=== PATIENT | male | born 1950 | race Caucasian/White ===

== ENCOUNTER 2016-08-06 12:18 | Emergency (ER) | payer MEDICARE ==
[2016-08-06 12:57] VITALS: PULSE 115; RESP 16; TEMP 97.1
[2016-08-06] MEDS ORDERED: SODIUM CHLORIDE 0.9% 1,000 ML IV STA ×3 (13:30→13:40)
--- NOTE | 2016-08-06 13:44 | ED ---
General Adult HPI - General Chief complaint: Back Pain/Injury Stated complaint: Back Pain, numbness Time Seen by Provider: 08/06/16 13:16 Source: patient, family, RN notes reviewed Mode of arrival: ambulatory Limitations: no limitations - History of Present Illness Initial comments: Patient is 65-year-old male with significant past medical history for chronic low back pain, who presents emergency room today with a chief complaint of increased pain was lower back weakness. Patient states that he did have 2 episodes where he fell. States he woke up this morning approximately 5:30 AM. He states he was at a difficult time getting out of bed. States was able to get up legs gave out and fell down to the ground. States he had an episode of bladder incontinence at that time. Patient states he was done on and off for approximately half an hour. He states he was able to get up make his way over to the dining room. States he had another episode where he fell. He states that approximate hour to get off the floor and into a chair. He states he slowly began to feel better. States still feeling somewhat weak and having some pain to the right side of lower back. He denies any recent trauma or injury. He does admit that in mid July he did have a couple slips and falls on the ice. Patient denies any saddle anesthesia. States voided normally since this episode of incontinence earlier. States never had incontinence before. Patient does admit to some pain right lower back. Admits to some numbness tingling going down into the right leg to his knee. Patient denies any recent fever, chills, shortness of breath, chest pain, abdominal pain, nausea or vomiting, dysuria or hematuria, constipation or diarrhea, headaches or visual changes, or any other complaints. - Related Data Home Medications Medication Instructions Recorded Confirmed Baclofen 10 mg PO TID 08/06/16 08/06/16 Cetirizine HCl [Zyrtec] 10 mg PO DAILY 08/06/16 08/06/16 Hydrocodone/Acetaminophen [[place] 1 tab PO Q6H PRN 08/06/16 08/06/16 10-325] Insulin Glargine [Lantus] 100 unit SQ DAILY 08/06/16 08/06/16 Zolpidem [Ambien] 10 mg PO HS PRN 02/03/17 02/03/17 clonazePAM [KlonoPIN] 1 mg PO TID 08/06/16 08/06/16 Previous Rx's Medication Instructions Recorded predniSONE 20 mg PO DIRECTED 5 Days 08/06/16 Allergies Allergy/AdvReac Type Severity Reaction Status Date / Time Saeiqsf-Xat-Hyu Reductase Allergy Swelling Verified 08/06/16 12:57 Inhibitor Review of Systems ROS Statement: Those systems with pertinent positive or pertinent negative responses have been documented in the HPI. ROS Other: All systems not noted in ROS Statement are negative. Past Medical History Past Medical History: COPD, Diabetes Mellitus Additional Past Medical History / Comment(s): back pain History of Any Multi-Drug Resistant Organisms: None Reported Past Surgical History: Tonsillectomy Past Psychological History: No Psychological Hx Reported Smoking Status: Current every day smoker Past Alcohol Use History: None Reported Past Drug Use History: None Reported General Exam - General Exam Comments Initial Comments: General: The patient is awake and alert, in no distress, and does not appear acutely ill. Eye: Pupils are equal, round and reactive to light, extra-ocular movements are intact. No nystagmus. There is normal conjunctiva bilaterally. No signs of icterus. Ears, nose, mouth and throat: There are moist mucous membranes and no oral lesions. Neck: The neck is supple, there is no tenderness or JVD. Cardiovascular: There is a regular rate and rhythm. No murmur, rub or gallop is appreciated. Respiratory: Lungs are clear to auscultation, respirations are non-labored, breath sounds are equal. No wheezes, stridor, rales, or rhonchi. Gastrointestinal: Soft, non-distended, non-tender abdomen without masses or organomegaly noted. There is no rebound or guarding present. No CVA tenderness. Bowel sounds are unremarkable. Musculoskeletal: Normal ROM. No tenderness in thoracic or lumbar spine. No tenderness over spinous processes. Patient does have some paravertebral tenderness on the right side of lower lumbar of L5. Strength 5/5. Sensation intact. Pulses equal bilaterally 2+. Neurological: A&O x 3. CN II-XII intact, There are no obvious motor or sensory deficits. Coordination appears grossly intact. Speech is normal. Skin: Skin is warm and dry and no rashes or lesions are noted. Psychiatric: Cooperative, appropriate mood & affect, normal judgment. : Good rectal tone Limitations: no limitations Course Vital Signs 08/06/16 12:51 Temperature 97.1 F L Pulse Rate 115 H Respiratory 16 Rate Blood Pressure 181/86 O2 Sat by Pulse 97 Oximetry Medical Decision Making - Medical Decision Making Case discussed in detail with attending physician Dr. Boo. Patient reexamined at this time shows no signs of distress. He is been up and laboratory here in the emergency room. He doesn't that he is feeling better in the morning was this morning. Patient labs been reviewed does show elevated blood sugar. Patient given insulin here in emergency room. Patient's CAT scan has been reviewed and does show 1. Degenerative disc disease with mild central stenosis at L4-L5. 2. Severe degenerative disc disease with vacuum disc, anterolisthesis and bilateral spondylosis at L5-S1. Bilateral lateral recess stenosis. Case was discussed with patient's orthopedic Dr Mathis who has reviewed his CT. Recommends starting him on a steroid taper and following up in the office over the next 2-3 days. Results were discussed with the patient. He states feels comfortable being discharged home starting steroids and following up. Patient advised return here to the emergency room if any symptoms increase or worsen or for any other concerns. - Lab Data Result diagrams: 08/06/16 13:53 08/06/16 13:53 Lab Results 08/06/16 08/06/16 08/06/16 Range/Units 13:53 13:53 13:53 WBC 5.6 (3.8-10.6) k/uL RBC 5.77 (4.30-5.90) m/uL Hgb 18.2 H (13.0-17.5) gm/dL Hct 54.6 H (39.0-53.0) % MCV 94.7 (80.0-100.0) fL MCH 31.6 (25.0-35.0) pg MCHC 33.4 (31.0-37.0) g/dL RDW 12.7 (11.5-15.5) % Plt Count 237 (150-450) k/uL Neutrophils % 73 % Lymphocytes % 17 % Monocytes % 8 % Eosinophils % 0 % Basophils % 0 % Neutrophils # 4.1 (1.3-7.7) k/uL Lymphocytes # 0.9 L (1.0-4.8) k/uL Monocytes # 0.5 (0-1.0) k/uL Eosinophils # 0.0 (0-0.7) k/uL Basophils # 0.0 (0-0.2) k/uL PT 10.7 (9.0-12.0) sec INR 1.1 (<1.1) APTT 24.3 (22.0-30.0) sec Sodium (137-145) mmol/L Potassium (3.5-5.1) mmol/L Chloride (98-107) mmol/L Carbon Dioxide (22-30) mmol/L Anion Gap mmol/L BUN (9-20) mg/dL Creatinine (0.66-1.25) mg/dL Est GFR (MDRD) Af Amer (>60 ml/min/1.73 sqM) Est GFR (MDRD) Non-Af (>60 ml/min/1.73 sqM) Glucose (74-99) mg/dL Calcium (8.4-10.2) mg/dL Total Bilirubin (0.2-1.3) mg/dL AST (17-59) U/L ALT (21-72) U/L Alkaline Phosphatase (38-126) U/L Total Creatine Kinase 59 (55-170) U/L CK-MB (CK-2) 1.0 (0.0-2.4) ng/mL CK-MB (CK-2) Rel Index 1.7 Troponin I <0.012 (0.000-0.034) ng/mL Total Protein (6.3-8.2) g/dL Albumin (3.5-5.0) g/dL Urine Color Urine Appearance (Clear) Urine pH (5.0-8.0) Ur Specific [place] (1.001-1.035) Urine Protein (Negative) Urine Glucose (UA) (Negative) Urine Ketones (Negative) Urine Blood (Negative) Urine Nitrate (Negative) Urine Bilirubin (Negative) Urine Urobilinogen (<2.0) mg/dL Ur Leukocyte Esterase (Negative) 08/06/16 08/06/16 Range/Units 13:53 15:30 WBC (3.8-10.6) k/uL RBC (4.30-5.90) m/uL Hgb (13.0-17.5) gm/dL Hct (39.0-53.0) % MCV (80.0-100.0) fL MCH (25.0-35.0) pg MCHC (31.0-37.0) g/dL RDW (11.5-15.5) % Plt Count (150-450) k/uL Neutrophils % % Lymphocytes % % Monocytes % % Eosinophils % % Basophils % % Neutrophils # (1.3-7.7) k/uL Lymphocytes # (1.0-4.8) k/uL Monocytes # (0-1.0) k/uL Eosinophils # (0-0.7) k/uL Basophils # (0-0.2) k/uL PT (9.0-12.0) sec INR (<1.1) APTT (22.0-30.0) sec Sodium 137 (137-145) mmol/L Potassium 4.8 (3.5-5.1) mmol/L Chloride 99 (98-107) mmol/L Carbon Dioxide 22 (22-30) mmol/L Anion Gap 16 mmol/L BUN 18 (9-20) mg/dL Creatinine 0.70 (0.66-1.25) mg/dL Est GFR (MDRD) Af Amer >60 (>60 ml/min/1.73 sqM) Est GFR (MDRD) Non-Af >60 (>60 ml/min/1.73 sqM) Glucose 504 H* (74-99) mg/dL Calcium 9.7 (8.4-10.2) mg/dL Total Bilirubin 0.6 (0.2-1.3) mg/dL AST 29 (17-59) U/L ALT 44 (21-72) U/L Alkaline Phosphatase 115 (38-126) U/L Total Creatine Kinase (55-170) U/L CK-MB (CK-2) (0.0-2.4) ng/mL CK-MB (CK-2) Rel Index Troponin I (0.000-0.034) ng/mL Total Protein 7.8 (6.3-8.2) g/dL Albumin 4.4 (3.5-5.0) g/dL Urine Color Light Yellow Urine Appearance Clear (Clear) Urine pH 5.0 (5.0-8.0) Ur Specific [place] 1.027 (1.001-1.035) Urine Protein Negative (Negative) Urine Glucose (UA) 4+ H (Negative) Urine Ketones Trace H (Negative) Urine Blood Negative (Negative) Urine Nitrate Negative (Negative) Urine Bilirubin Negative (Negative) Urine Urobilinogen <2.0 (<2.0) mg/dL Ur Leukocyte Esterase Negative (Negative) Disposition Clinical Impression: Lumbar radiculopathy, acute Disposition: HOME SELF-CARE Condition: Good Instructions: Acute Low Back Pain (ED) Additional Instructions: Please follow up with Dr. Mathis in the office in the next 2-3 days. Please use steroids as prescribed and return to emergency room if any symptoms increase or worsen or for any concerns as discussed. Prescriptions: predniSONE 20 mg PO DIRECTED 5 Days Referrals: Courtney Mahan MD [Primary Care Provider] - 1-2 days Papa Mathis DO [Doctor of Osteopathic Medicine] - 1-2 days Time of Disposition: 15:58
[2016-08-06 14:22] LABS: Basophils % (A) 0 %; CH 32.3; CHCM 34.2; Eosinophils % (A) 0 %; HCT 54.6 % (39.0-53.0); HDW 2.36; HGB 18.2 gm/dL (13.0-17.5); Luc # (Auto) 0.11; Luc % (Auto) 2; Lymphocytes # (A) 0.9 k/uL (1.0-4.8); Lymphocytes % (A) 17 %; MCH 31.6 pg (25.0-35.0); MCHC 33.4 g/dL (31.0-37.0); MCV 94.7 fL (80.0-100.0); Mean Platelet Volume 7.5; Monocytes # (A) 0.5 k/uL (0-1.0); Monocytes % (A) 8 %; Neutrophils # (A) 4.1 k/uL (1.3-7.7); Neutrophils % (A) 73 %; RBC 5.77 m/uL (4.30-5.90); RDW 12.7 % (11.5-15.5); WBC 5.6 k/uL (3.8-10.6); WBC (Perox) 5.78
[2016-08-06 14:31] LABS: ALT 44 U/L (21-72); AST 29 U/L (17-59); Alkaline Phosphatase 115 U/L (38-126); Anion Gap 16 mmol/L; Blood Urea Nitrogen 18 mg/dL (9-20); Calcium 9.7 mg/dL (8.4-10.2); Carbon Dioxide 22 mmol/L (22-30); Chloride 99 mmol/L (98-107); Non-African American GFR(MDRD) >60 (>60 ml/min/1.73 sqM); Potassium 4.8 mmol/L (3.5-5.1); Sodium 137 mmol/L (137-145); Total Bilirubin 0.6 mg/dL (0.2-1.3); Total Protein 7.8 g/dL (6.3-8.2)
[2016-08-06 14:41] LABS: Glucose 504 mg/dL (74-99)
[2016-08-06] MEDS ORDERED: INSULIN REGULAR 100 UNIT/ML VIAL IV ONE (14:42)
[2016-08-06 14:46] LABS: Creatine Kinase 59 U/L (55-170)
--- NOTE | 2016-08-06 14:47 | XR ---
EXAMINATION TYPE: XR chest 2V DATE OF EXAM: 08/06/2016 2:42 PM COMPARISON: NONE HISTORY: Shortness of breath TECHNIQUE: Frontal and lateral views of the chest are obtained. FINDINGS: Scattered senescent parenchymal changes noted. Hyperinflation compatible with COPD. No evidence for infiltrate. No evidence for atelectasis. Heart size is stable. Mediastinal structures are stable and grossly unremarkable. No evidence for hilar prominence. Degenerative changes dorsal spine. IMPRESSION: 1. No evidence for acute pulmonary disease.
--- NOTE | 2016-08-06 14:47 | XR ---
EXAMINATION TYPE: XR lumbar spine 2 or 3V DATE OF EXAM: 08/06/2016 2:42 PM CLINICAL HISTORY: pain TECHNIQUE: Three views of the lumbar spine are submitted. COMPARISON: None. FINDINGS: There are 5 lumbar type vertebral bodies identified. The lumbar spine shows satisfactory alignment w ithout evidence of acute fracture or dislocation. Vertebral body heights are within normal limits. Severe degenerative change at L5-S1 with vacuum discs. Endplate sclerosis, degenerative spurring and facet joint arthropathy is seen. There is also 3.7 mm anterolisthesis of L5 on S1 with bilateral spon dylolysis difficult to exclude. The overlying soft tissue appears unremarkable. IMPRESSION: No acute fracture or dislocation is seen in the lumbar spine. Degenerative changes as noted. ICD 10 NO FRACTURE, INITIAL EVALUATION
[2016-08-06 14:53] LABS: INR 1.1 (<1.1); Partial Thromboplastin Time 24.3 sec (22.0-30.0); Prothrombin Time 10.7 sec (9.0-12.0)
[2016-08-06 14:58] LABS: Troponin I <0.012 ng/mL (0.000-0.034)
--- NOTE | 2016-08-06 15:17 | CT ---
EXAMINATION TYPE: CT lumbar spine wo con DATE OF EXAM: 08/06/2016 3:14 PM COMPARISON: NONE HISTORY: Injury years ago. Numbness to lower extremities and incontinence of urine. CT DLP: 1012.00 mGycm CONTRAST: Unenhanced CT of the lumbar spine is performed. Unenhanced CT of the lumbar spine was performed. Bone and soft tissue window settings are submitted as well as coronal and sagittal reconstructions. L1-L2: Normal disc space height. No disc herniation protrusion or central stenosis. No facet joint arthropathy. No evidence for foraminal encroachment. L2-L3: Normal disc space height. No disc herniation protrusion or central stenosis. No facet joint arthropathy. No evidence for foraminal encroachment. L3-L4: Mild degenerative disc space narrowing. Mild posterior disc bulge with mild effacement ventral thecal sac. No evidence of herniation or central stenosis. L4-L5: Mild degenerative disc space narrowing. Moderate circumferential disc bulge greatest posterior ly resulting in effacement of the ventral thecal sac. Suspect mild central stenosis. Mild bilateral f oraminal encroachment. L5-S1: Severe degenerative disc disease with vacuum disc. Marked endplate sclerosis identified. Grade 1 anterolisthesis L5 on S1 measuring 3.7 mm. Bilateral spondylolysis of the pars interarticularis. V entral spondylosis identified. Moderate posterior disc bulge with encapsulating spur resulting in jacob d disc. Bilateral lateral recess stenosis. No paraspinal masses are identified. Lumbar segments are free if fracture. IMPRESSION: 1. degenerative disc disease with mild central stenosis at L4-5. 2. Severe degenerative disc disease with vacuum disc, anterolisthesis and bilateral spondylolysis at L5-S1. Bilateral lateral recess stenosis. See above.
[2016-08-06 15:47] LABS: Appearance,Urine Clear (Clear); Bilirubin,Urine Negative (Negative); Glucose,Urine (UA) 4+ (Negative); Ketones,Urine Trace (Negative); Leukocyte Esterase,Urine Negative (Negative); Nitrite,Urine Negative (Negative); Protein,Urine Negative (Negative); Specific Gravity,Urine 1.027 (1.001-1.035); UA Billing (MACRO vs. MICRO) CHEM; Urobilinogen,Urine <2.0 mg/dL (<2.0)
[2016-08-06 16:18] VITALS: BP 156/87
== END 2016-08-06 16:18 | disposition home or self-care (01) ==
LOC: EC 12:18
DX: M54.16 Radiculopathy, lumbar region (principal); E11.65 Type 2 diabetes mellitus with hyperglycemia; M51.36 Other intervertebral disc degeneration, lumbar region; F17.200 Nicotine dependence, unspecified, uncomplicated; Z79.899 Other long term (current) drug therapy; Z79.4 Long term (current) use of insulin; W19.XXXA Unspecified fall, initial encounter; Z88.8 Allergy status to other drugs, medicaments and biological substances
CPT/HCPCS: 36415; 71020; 72100; 72131; 80053; 81003; 82550; 82553; 84484; 85025; 85610; 85730; 93005; 96360; 96361; 99284

== ENCOUNTER → 2017-03-23 | Outpatient (CLI) | payer MEDICARE ==
--- NOTE | 2017-03-23 13:26 | MR ---
EXAMINATION TYPE: MR brain wo/w con DATE OF EXAM: 03/23/2017 COMPARISON: NONE HISTORY: TIA TECHNIQUE: Multiplanar, multisequence images of the brain and brainstem is performed without and with IV contras t, utilizing 10 mL intravenous Gadavist . FINDINGS: Diffusion weighted images demonstrate no evidence of a recent infarct or other diffusion ab normality. There is no extra-axial fluid collection or significant white matter signal abnormality. Changes of chronic sinusitis noted. Abnormal signal within the aislinn is suggestive of remote ischemia. Abnormal focal areas of signal invo lving the basal ganglia are suggestive of remote lacunar infarct. There is mild to moderate generalized degenerative change with numerous bilateral areas of focal abno rmal signal within the white matter which are nonspecific but most typical remote microvascular ische juan. Other diagnostic considerations would include demyelinating disease and hypertension. Correlate clinically. Craniocervical junction maintained. Sella turcica has a normal appearance. There is no evidence of a cerebellopontine angle mass. IMPRESSION: 1. Degenerative and nonspecific white matter changes most typical remote microvascular ischemia. 2. Findings suggest remote ischemia involving the aislinn.
== END | disposition home or self-care (01) ==
LOC: RADMRIMAIN 08:37
PROVIDERS: ATTEND Family Medicine
DX: G45.9 Transient cerebral ischemic attack, unspecified (principal)
CPT/HCPCS: 70553; A9581

== ENCOUNTER → 2017-03-31 | Outpatient (CLI) | payer MEDICARE ==
[~2017-03-31] MED LIST: REGADENOSON 0.4 MG/5 ML SYRINGE IV ONE
--- NOTE | 2017-03-31 16:42 | NM ---
EXAMINATION TYPE: NM stress lexiscan cardiolite DATE OF EXAM: 03/31/2017 COMPARISON: NONE HISTORY: Abnormal EKG with history of chest pain, palpitations, numbness, hypertension, diabetes, tob acco abuse and CVA. TECHNIQUE: After the intravenous administration of 11.0 mCi Tc 99m Sestamibi - Cardiolite resting SP ECT images acquired 45 minutes post injection. The patient received 0.4mg Lexiscan, 25.4 mCi Tc 99m Sestamibi - Stress images obtained [address] injection FINDINGS: Review of stress and rest SPECT images demonstrates no distinct perfusion abnormality. Gated analysi s shows normal wall motion with an estimated left ventricular ejection fraction of 64 %. TID of 0 .97 is within normal limits IMPRESSION: 1. No scintigraphic evidence for reversible ischemia. 2. Estimated left ventricular ejection fraction of 64%.
--- NOTE | 2017-03-31 20:52 | EST ---
EXERCISE STRESS AGE: 66 SEX: M HT: 6'1" WT: 222 PROTOCOL: Lexiscan STAGE: DURATION OF EXERCISE: HEART RATE REST: 100 BLOOD PRESSURE REST: 162/87 MAXIMUM HEART RATE ACHIEVED: 113 MAXIMUM BLOOD PRESSURE: 173/69 85% MPHR: 100% MPHR: METS: INDICATIONS: Abnormal EKG. CLINICAL INFORMATION: Baseline heart rate 100 beats per minute. Baseline blood pressure 162/81 mmHg. The patient received Lexiscan infusion per protocol. There was no ECG evidence for ischemia. Occasional PVCs noted. Nuclear portion of the stress test will be reported separately. IMPRESSION: 1. No ECG evidence for ischemia. 2. Baseline hypertension. 3. Baseline sinus tachycardia. MMODL / IJN: [id number] /
== END | disposition home or self-care (01) ==
LOC: RADNMMAIN 08:45
PROVIDERS: ATTEND Family Medicine
DX: I10 Essential (primary) hypertension (principal); R94.31 Abnormal electrocardiogram [ECG] [EKG]; R00.0 Tachycardia, unspecified
CPT/HCPCS: 93017; 78452; A9500; J2785

== ENCOUNTER 2021-05-08 18:54 | Emergency (ER) | payer MEDICARE ==
[2021-05-08 19:53] VITALS: BP 111/63; PULSE 85; RESP 20; TEMP 98.6
--- NOTE | 2021-05-08 22:05 | XR ---
EXAMINATION TYPE: XR tibia fibula LT DATE OF EXAM: 05/08/2021 COMPARISON: NONE HISTORY: Cellulitis TECHNIQUE: 4 views FINDINGS: There is soft tissue swelling around the lower leg. Knee joint and ankle joint appear intac t. I see no fracture. There is no sign of knee joint effusion. IMPRESSION: Subcutaneous edema around the lower leg. No fracture.
[2021-05-08 22:12] LABS: Basophils % (A) 0 %; Eosinophils # (A) 0.3 k/uL (0-0.7); Eosinophils % (A) 3 %; HCT 46.1 % (39.0-53.0); Lymphocytes # (A) 1.4 k/uL (1.0-4.8); Lymphocytes % (A) 16 %; MCH 32.3 pg (25.0-35.0); MCHC 32.5 g/dL (31.0-37.0); MCV 99.5 fL (80.0-100.0); Mean Platelet Volume 8.2; Monocytes # (A) 0.6 k/uL (0-1.0); Monocytes % (A) 7 %; Neutrophils # (A) 6.4 k/uL (1.3-7.7); Neutrophils % (A) 72 %; Platelet Count 142 k/uL (150-450); RBC 4.63 m/uL (4.30-5.90); RDW 13.2 % (11.5-15.5); WBC 8.9 k/uL (3.8-10.6)
[2021-05-08 22:30] LABS: ALT 22 U/L (4-49); AST 27 U/L (17-59); African American GFR (CKD) >90 (>60 ml/min/1.73 sqM); Albumin 3.7 g/dL (3.5-5.0); Alkaline Phosphatase 80 U/L (38-126); Anion Gap 10 mmol/L; Blood Urea Nitrogen 21 mg/dL (9-20); C Reactive Protein 5.2 mg/dL (<1.0); Calcium 8.7 mg/dL (8.4-10.2); Carbon Dioxide 21 mmol/L (22-30); Chloride 107 mmol/L (98-107); Glucose 212 mg/dL (74-99); Non-African American GFR(CKD) 80 (>60 ml/min/1.73 sqM); Sodium 138 mmol/L (137-145); Total Bilirubin 0.4 mg/dL (0.2-1.3)
[2021-05-08 22:32] LABS: Potassium 4.6 mmol/L (3.5-5.1)
[2021-05-08] MEDS ORDERED: AMPICILLIN-SULBACTAM 3 GM in SODIUM CHLORIDE 0.9% 100 ML IVPB STA (22:41)
[2021-05-08] MEDS ORDERED: VANCOMYCIN IV PER PHARMACY 1 EACH MISC MISCELLANE PRN (22:41)
--- NOTE | 2021-05-08 22:45 | US ---
EXAMINATION TYPE: US venous doppler duplex LE LT DATE OF EXAM: 05/08/2021 9:16 PM COMPARISON: NONE CLINICAL HISTORY: swelling. left leg cellulitis. lower leg redness. On baby aspirin. SIDE PERFORMED: Left TECHNIQUE: The lower extremity deep venous system is examined utilizing real time linear array sonog branden with graded compression, doppler sonography and color-flow sonography. VESSELS IMAGED: Common Femoral Vein Deep Femoral Vein Greater Saphenous Vein * Femoral Vein Popliteal Vein Small Saphenous Vein * Proximal Calf Veins (* superficial vessels) Left Leg: Negative for DVT IMPRESSION: No evidence of deep vein thrombosis in the left leg.
[2021-05-08] MEDS ORDERED: VANCOMYCIN 1,750 MG in SODIUM CHLORIDE 0.9% 500 ML 500 ML IVPB ONE (23:00)
[2021-05-08] MEDS ORDERED: ceFAZolin 1,000 MG VIAL (IM USE) IM STA (23:04)
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
== END 2021-05-08 23:27 | disposition home or self-care (01) ==
LOC: EC 18:54
DX: L03.116 Cellulitis of left lower limb (principal); Z79.4 Long term (current) use of insulin; Z79.82 Long term (current) use of aspirin; J44.9 Chronic obstructive pulmonary disease, unspecified; E11.9 Type 2 diabetes mellitus without complications; I10 Essential (primary) hypertension; Z90.89 Acquired absence of other organs; F17.200 Nicotine dependence, unspecified, uncomplicated
CPT/HCPCS: 99284; 96372; 36415; 80053; 83605; 85025; 86140; 73590; 93971; J0690

== ENCOUNTER → 2021-07-09 | Outpatient (CLI) | payer MEDICARE ==
--- NOTE | 2021-07-10 09:30 | MR ---
EXAMINATION TYPE: MR tspine/lspine wo con DATE OF EXAM: 07/09/2021 COMPARISON: CT lumbar spine 08/06/2016, plain film 08/06/2016 HISTORY: Mid and lower back pain, RLE radic. Hx fall December 2020, L5 fracture. TECHNIQUE: Multiplanar, multisequence imaging of the thoracic and lumbar spine is performed without I V contrast. FINDINGS: Thoracic spine MRI: Thoracic vertebral bodies show preserved height. There is no significant spinal stenosis or foraminal encroachment. Thoracic cord signal is maintained. Slight spinal curvature is noted. There is mild sp ondylosis especially at the lower levels. Disc heights are relatively maintained, the midthoracic spi ne and there is some loss of disc height and signal. Mild multilevel spondylosis. T2-T3 shows right posterior paracentral disc bulge causing anterolateral mass effect on the thecal sa c. T8-9 shows a left posterior paracentral disc bulge greater than T7-8 causing mild anterior mass ef fect on the thecal sac. Facet arthropathy changes are present at the lower thoracic spine level. T11 shows a probable hemangioma within the vertebral body. IMPRESSION: Mild degenerative disc disease, spinal curvature. Lumbar spine MRI: There is a slight spinal curvature. Loss of disc height, signal is greatest at L5-S1 as seen on prior plain film and x-ray, there is associated vacuum phenomenon, endplate discogenic marrow signal davies e, spondylosis. Anterolisthesis grade 1 is present L5-S1. Bilateral spondylolysis is present at L5. T he conus shows a normal appearance. The listhesis at L5-S1 contributes to cause bilateral foraminal encroachment. 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 There is facet arthropathy change. L4-5 shows circumferential extension endplate disc complex, short pedicles likely contribute to cause some foraminal encroachment. Facet arthropathy changes present causing posterior lateral mass effect on the thecal sac. No significant spinal stenosis. No sizable disc herniation. L3-4: There is somewhat eccentric disc bulge towards the right, short pedicles contribute to cause so me foraminal encroachment, some anterolateral mass effect is present on the thecal sac. No significan t spinal stenosis. L2-3: There is facet arthropathy with hypertrophy ligamentum flavum, posterior disc bulge causes slig ht anterior mass effect on the thecal sac. No significant spinal stenosis. L1-2: No evident disc herniation or significant foraminal encroachment, no spinal stenosis. Cystic focus is present in exophytic location at the upper pole the right kidney medially. Some promi nence of left adrenal gland which is indeterminate. IMPRESSION: Spondylolysis, spinal listhesis, degenerative disc disease. Correlate for right L5 radicu lopathy, indeterminate mixed signal focus posterior to the L5 vertebral body may be related to seques tered disc fragment, atypical synovial cyst formation, contrast-enhanced exam may be of benefit. Mahesh tional findings above.
== END | disposition home or self-care (01) ==
LOC: RADMRIMAIN 15:02
PROVIDERS: ATTEND Neurological Surgery
DX: M51.34 Other intervertebral disc degeneration, thoracic region (principal); M51.36 Other intervertebral disc degeneration, lumbar region; M43.8X4 Other specified deforming dorsopathies, thoracic region; M47.816 Spondylosis without myelopathy or radiculopathy, lumbar region; M43.06 Spondylolysis, lumbar region
CPT/HCPCS: 72146; 72148

== ENCOUNTER → 2022-11-01 | Outpatient (CLI) | payer MEDICARE ==
--- NOTE | 2022-11-01 16:43 | XR ---
EXAMINATION TYPE: XR foot complete RT DATE OF EXAM: 11/01/2022 4:29 PM INDICATION: Patient age:Male; 71 years old; Reason for study: M79.671; [facility]. COMPARISON: Right foot radiograph 08/27/2022, CT right foot 08/29/2022 TECHNIQUE: The right foot was examined in the AP, oblique, and lateral projections. FINDINGS: No acute fracture or dislocation. No osseous erosions. Mild hallux valgus deformity redemonstrated. D iffuse soft tissue swelling involving the dorsal forefoot foot. Redemonstrated is a small linear meta llic foreign body in the soft tissues of proximal phalanx of second toe. Ulceration involving the sof t tissues the medial plantar aspect of the first MTP joint. IMPRESSION: 1. No evidence of acute fracture or osseous erosion. 2. Redemonstration of diffuse soft tissue swelling most prominently involving the dorsal forefoot. S imilar ulceration involving the soft tissues at medial plantar aspect of the first MTP joint. 3. Small linear metallic foreign body is redemonstrated within the soft tissues of the second digit.
== END | disposition home or self-care (01) ==
LOC: RADXRMAIN 16:13
PROVIDERS: ATTEND Internal Medicine Infectious Disease
DX: S90.851A Superficial foreign body, right foot, initial encounter (principal); M79.89 Other specified soft tissue disorders

== ENCOUNTER → 2022-11-01 | Outpatient (CLI) | payer MEDICARE ==
[2022-11-01 22:52] LABS: C Reactive Protein <0.30 mg/dL (0.00-0.80)
[2022-11-01 22:53] LABS: ALT 14 U/L (10-49); AST 22 U/L (14-35); African American GFR (CKD) 91.7 (60.0-200.0); Albumin 3.7 g/dL (3.8-4.9); Albumin/Globulin Ratio 1.19 (1.60-3.17); Alkaline Phosphatase 127 U/L (41-126); Blood Urea Nitrogen 17.2 mg/dL (9.0-27.0); Carbon Dioxide 27.9 mmol/L (20.0-27.5); Chloride 100 mmol/L (96-109); Globulin 3.1 g/dL (1.6-3.3); Glucose 380 mg/dL (70-110); Non-African American GFR(CKD) 79.1 (60.0-200.0); Potassium 5.7 mmol/L (3.5-5.5); Sodium 138 mmol/L (135-145); Total Protein 6.8 g/dL (6.2-8.2)
== END | disposition home or self-care (01) ==
LOC: LABWHC1 15:38
PROVIDERS: ATTEND Internal Medicine Infectious Disease
DX: S91.301A Unspecified open wound, right foot, initial encounter (principal); Y99.9 Unspecified external cause status
CPT/HCPCS: 36415; 80053; 85025; 85652; 86140

== ENCOUNTER → 2023-04-28 | Outpatient (CLI) | payer MEDICARE ==
[2023-04-28 14:28] LABS: African American GFR (CKD) >90 (>60 ml/min/1.73 sqM); Blood Urea Nitrogen 17 mg/dL (9-20); Non-African American GFR(CKD) >90 (>60 ml/min/1.73 sqM)
--- NOTE | 2023-04-28 17:27 | CT ---
EXAMINATION TYPE: CT angio abd aorta w/Runoff CT DLP: 2529.7 mGycm, Automated exposure control for dose reduction was used. 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 Bilateral edema in lower extremities. Diabetic. TECHNIQUE: Multiple thin slice sub-millimeter images were obtained after administration of contrast. 3-D reconstructed images and maximum intensity projection images were obtained. CT angio abd aorta w /Runoff CT Contrast: Contrast used:120 ml mL of Isovue 370 with IV Contrast, Oral contrast used: None FINDINGS: CTA Abdomen and pelvis: The ascending thoracic aorta and visualized abdominal aorta are within normal limits for size No evidence for dissection or aneurysmal dilation. There is moderate to severe ather osclerotic disease with calcifications and soft plaque present. The visualized portions of the latera l single renal arteries, superior mesenteric artery, the celiac artery and inferior mesenteric artery are patent. The common iliac and external iliac arteries demonstrate large severe atherosclerotic di sease and are patent. CTA Lower extremities: Right: The common femoral and superficial femoral arteries are patent. Scattered atherosclerotic dise ase with scattered areas of at least 50% stenosis of the superficial femoral artery. The popliteal ar facundo is patent. Anterior and posterior tibial arteries as well as the peroneal artery are patent. Ant erior and posterior tibial arteries cross the ankle. Diffuse soft tissue edema throughout the lower e xtremity leg essentially starting at the level of the knee and extending to the feet. No evidence for organizing fluid collection. Left: The common femoral and superficial femoral arteries are patent. Scattered atherosclerotic disea se with scattered areas of at least 50% stenosis of the superficial femoral artery. The popliteal ar facundo is patent. Anterior and posterior tibial arteries as well as the peroneal artery are patent. Ant erior and posterior tibial arteries cross the ankle. Diffuse soft tissue edema throughout the lower extremity leg essentially starting at the level of the knee and extending to the feet. No evidence for organizing fluid collection. LOWER CHEST: No evidence of focal consolidation, pneumothorax or pleural effusion. LIVER: Unremarkable GALLBLADDER AND BILE DUCTS: Unremarkable. PANCREAS: Scattered calcific patient's of the pancreatic parenchyma. SPLEEN: Unremarkable. ADRENAL GLANDS: Calcifications. Nodular changes to left adrenal gland likely representing representin g adenomatous hyperplasia versus underlying adrenal adenoma. KIDNEYS AND URETERS: No evidence of hydronephrosis or renal calculus. The ureters are unremarkable. Complicated left exophytic renal cysts without evidence for postcontrast enhancement. PELVIS BLADDER: Unremarkable REPRODUCTIVE: Prostate is enlarged in size measuring 4.5 cm in transverse dimension. ABDOMEN & PELVIS STOMACH AND BOWEL: No evidence of bowel obstruction. PERITONEUM: No evidence of pneumoperitoneum or free fluid. VASCULATURE: No evidence of aortic aneurysm. MUSCULOSKELETAL: No acute osseous abnormalities LYMPH NODES: No gross evidence for lymphadenopathy. SOFT TISSUE/ABDOMINAL WALL: Unremarkable IMPRESSION 1. No evidence of vascular occlusion. 2. At least two vessels are seen crossing the ankle joint bilaterally. 3. Severe atherosclerosis with 4. Diffuse soft tissue edema throughout the legs essentially starting at the level of the knee and ex tending to the feet.. No evidence for organizing fluid collection. 5. Left complicated renal cyst with septations. This can be completely evaluated with MRI renal mass protocol 6. Chronic pancreatitis changes.
== END | disposition home or self-care (01) ==
LOC: RADCTMAIN 12:58
PROVIDERS: ATTEND Surgery
DX: I74.3 Embolism and thrombosis of arteries of the lower extremities (principal); K86.1 Other chronic pancreatitis; R60.0 Localized edema; N28.1 Cyst of kidney, acquired
CPT/HCPCS: 82565; 84520; 75635; 36415; Q9967

== ENCOUNTER → 2024-01-11 | Outpatient (CLI) | payer MEDICARE ==
[2024-01-11 15:43] LABS: Blood Urea Nitrogen 15.9 mg/dL (9.0-27.0); Potassium 4.3 mmol/L (3.5-5.5)
[2024-01-11 16:19] LABS: HCT 45.4 % (39.6-50.0); HGB 14.9 g/dL (13.0-17.0); MCH 31.6 pg (27.0-32.0); MCHC 32.8 g/dL (32.0-37.0); MCV 96.4 FL (80.0-97.0); NRBC Per 100 WBC 0 X 10*3/uL (0.00-0.01); Platelet Count 189 X 10*3/uL (140-440); RBC 4.71 X 10*6/uL (4.40-5.60); RDW 12.8 % (11.5-14.5)
== END | disposition home or self-care (01) ==
LOC: LABPAT 11:26
PROVIDERS: ATTEND Surgery
DX: Z01.812 Encounter for preprocedural laboratory examination (principal); I65.29 Occlusion and stenosis of unspecified carotid artery; Z79.4 Long term (current) use of insulin; Z79.899 Other long term (current) drug therapy
CPT/HCPCS: 36415; 82565; 84132; 84520; 85027; 86850; 86900; 86901

== ENCOUNTER 2024-01-13 06:41 | Inpatient (IN) | payer MEDICARE ==
[2024-01-09 15:04] VITALS: BMI 32.4
[2024-01-13] MEDS: MIDAZOLAM 2 MG/2 ML VIAL IV PRN (07:48)
[2024-01-13 07:54] LABS: Glucose,Whole Blood 194 mg/dL (70-110)
[2024-01-13] MEDS: DEXAMETHASONE SOD PHOSPHATE 4 MG/ML 1 ML VIAL IV ONE (08:16)
[2024-01-13] MEDS: ONDANSETRON 4 MG/2 ML VIAL IVP ONE (08:16)
[2024-01-13] MEDS: IV FLUID CONTINUATION 1,000 ML IV ONE ×2 (08:19→10:38)
[2024-01-13] MEDS: THROMBIN (BOVINE) 5,000 UNIT VIAL TOPICAL ONE (08:53)
[2024-01-13] MEDS: SODIUM CHLORIDE 0.9% 500 ML 500 ML with HEPARIN SODIUM,PORCINE (1 ML) 5,000 UNIT IV ONE (08:54)
[2024-01-13] MEDS: LIDOCAINE 1% INJ 10MG/ML (20 ML MDV) SQ ONE (08:54)
[2024-01-13] MEDS: ceFAZolin 1,000 MG in SODIUM CHLORIDE 0.9% 1,000 ML IRRIGATION ONE (08:55)
[2024-01-13] MEDS: LACTATED RINGERS 1,000 ML IV ONE ×2 (10:15→14:24)
[2024-01-13] MEDS: NITROGLYCERIN-D5W PMX 50 MG in DEXTROSE/WATER 1 250ML.BAG IV SCH (10:56)
[2024-01-13 11:02] LABS: Glucose,Whole Blood 224 mg/dL (70-110)
--- NOTE | 2024-01-13 11:06 | P.OP ---
Date of Procedure: 01/13/24 Preoperative Diagnosis: Hemodynamically severe right ICA stenosis. Postoperative Diagnosis: Same. Procedure(s) Performed: Right carotid endarterectomy with patch angioplasty. Anesthesia: CAROLA Surgeon: Dean Britt Estimated Blood Loss (ml): 50 Urine output (ml): 0 Pathology: other (Right carotid plaque) Condition: stable Disposition: floor Indications for Procedure: Patient is a 73-year-old male with a history of carotid occlusive disease as well as multiple other comorbid medical conditions such as diabetes mellitus and hypertension who was found to have a hemodynamically severe right ICA stenosis on carotid duplex imaging. Due to financial reasons confirmatory CTA of the carotids was not performed. However the duplex of the carotids was of high quality and felt to represent the true extent of pathology. Patient received medical clearance and was offered carotid endarterectomy. The procedure, risk and benefits were discussed. Patient wished to proceed. Description of Procedure: Patient was brought the op room placed in the supine position administered general endotracheal anesthesia administered by the department of anesthesiology. Patient received intravenously administered prophylactic antibiotics in the perioperative phase. Patient's right lateral neck supraclavicular and anterior chest wall areas were sterilely prepped and draped in the usual manner. Skin incision was made along the anterior border the sternocleidomastoid muscle on the right taking care to avoid typical location of the marginal mandibular nerve. The incision was deepened through the subcutaneous tissues. Hemostasis was achieved using electrocautery. The dissection was then continued along the anterior border the sternocleidomastoid muscle. A large network of veins were encountered and these were doubly ligated with silk suture and divided where appropriate. The dissection was then carried down to the carotid sheath. The proximal portion of the common carotid artery was identified dissected free of investing tissues and encircled with Vesseloops. The vagus nerve was identified and left undisturbed. The dissection was then carried cephalad to the level of the carotid bulb area. The carotid artery was rotated laterally. It was necessary to divide the superior thyroid artery which was completed with silk suture and transected. This allowed for a more normal orientation of the carotid bulb as well as the external and internal carotid segments. The hypoglossal nerve was identified and left undisturbed. Dissection was then carried to the internal carotid artery segment distal to the level of plaque formation and was encircled with Vesseloops. Vesseloops was placed about the origin of the external carotid artery. The patient was systemically heparinized with 10,000 units of heparin, dose was chosen based on patient's weight. Subsequent ACT demonstrated adequate anticoagulation. Subsequently Vesseloops surrounding the internal carotid, followed by the common and external carotid arteries were drawn closed. Cerebral oximetry was utilized and throughout the case no significant drop in cerebral oximetry was encountered. Arteriotomy was made in the common carotid artery and extended with Mohan Flores scissors through the bulb level and into the internal carotid artery to a point distal to the plaque. Excellent backbleeding was identified. Endarterectomy was then started at the common level extended to the level of bulb. Retraction endarterectomy was performed on the external segment. The endarterectomy plane was then extended into the internal carotid where the distal end of the plaque feathered off relatively well and the specimen sent to pathology. The remaining luminal surface was inspected for any loose or free- floating material and was removed as identified. The remaining plaque in the internal carotid segment was tacked with 6-0 Prolene suture. Patch angioplasty closure of the arteriotomy was then performed with bovine pericardial patch and 6-0 Prolene suture placed in a running fashion. Just prior to completion of the anastomotic line the ICA was backbled followed by the external carotid and finally by the common carotid with no thrombus being retrieved. The arteriotomy closure was completed. The external carotid artery was then opened. The origin of the internal was occluded and Vesseloops surrounding the common carotid were loosened thus flushing any potential thrombus into the external system. Flow was then returned to the internal system. 1 point of bleeding along the anastomotic line was encountered and this was controlled with 6-0 Prolene suture. Excellent palpable pulse in the ICA distal to the endarterectomy plane was identified. The wound was irrigated with heparinized saline solution and no bleeding point was identified. Topical thrombin and Gelfoam were placed about the anastomotic line the patient did receive 10 mg of protamine to reverse the heparin effect. The wound was once again inspected and hemostasis was judged to be adequate. The wound was irrigated with antibiotic-containing solution. Deep tissues were closed with 3-0 Vicryl dermis was closed with 4-0 Monocryl placed in running intradermal fashion. Appropriate dressings were applied. Patient tolerated the procedure well, awoke without apparent neurologic complication and was transferred to the recovery area in satisfactory and stable condition.
[2024-01-13] MEDS: INSULIN ASPART (NovoLOG) 100 UNIT/ML VIAL SQ ONE (11:10)
[2024-01-13] MEDS: HYDROmorphone 0.5 MG/0.5 ML SYRINGE IVP PRN (11:10)
[2024-01-13] MEDS: CLEVIDIPINE BUTYRATE 25 MG in EMPTY BAG 1 BAG IV SCH (11:30)
[2024-01-13] MEDS: hydrALAZINE HCL 20 MG/ML 1 ML VIAL IVP STA (13:44)
[2024-01-13] MEDS ORDERED: ALBUTEROL NEBULIZED 2.5 MG/3 ML INHALATION PRN (14:10)
[2024-01-13] MEDS ORDERED: FUROSEMIDE 20 MG TAB PO PRN (14:10)
[2024-01-13] MEDS ORDERED: NALOXONE 0.4 MG/ML 1 ML VIAL IV PRN (14:11)
[2024-01-13 14:48] LABS: Glucose,Whole Blood 224 mg/dL (70-110)
[2024-01-13] MEDS: BENZOCAINE/MENTHOL LOZENG 1 EACH LOZENGE MUCOUS MEM PRN (15:30)
[2024-01-13] MEDS: LORATADINE 10 MG TAB PO SCH (15:30)
[2024-01-13] MEDS: clonazePAM 0.5 MG TAB PO SCH (15:31)
[2024-01-13] MEDS: MORPHINE SULFATE ER 30 MG TABLET PO SCH (15:31)
[2024-01-13] MEDS: guaiFENesin 600 MG TABLET.ER PO SCH (15:31)
[2024-01-13] MEDS: NICOTINE 21MG/24HR PATCH TRANSDERM SCH (15:51)
[2024-01-13] MEDS: LACTATED RINGERS 1,000 ML IV SCH (17:57)
[2024-01-13] MEDS: INSULN ASP PRT/INSULIN ASPART 100 UNIT/ML 10 ML VIAL SQ SCH (18:02)
[2024-01-13 19:59] LABS: Glucose,Whole Blood 268 mg/dL (70-110)
[2024-01-13] MEDS: ASPIRIN 81 MG PO SCH (20:11)
[2024-01-13] MEDS: METOPROLOL TARTRATE 25 MG TAB PO SCH (20:11)
[2024-01-13] MEDS: busPIRone HCl 10 MG TAB PO SCH (20:11)
[2024-01-13] MEDS ORDERED: DEXTROSE 50% SYRINGE 50 ML IVP PRN ×2 (22:27)
--- NOTE | 2024-01-14 01:06 | P.CONS ---
History of Present Illness - Reason for Consult Consult date: 01/13/24 Medical management - Chief Complaint Carotid endarterectomy right - History of Present Illness Patient is a 73-year-old male with a past medical history of hypertension, diabetes type 2 insulin-dependent, peripheral vascular disease, carotid stenosis and COPD was admitted to hospital for elective right carotid endarterectomy. Patient is s/p right carotid endarterectomy with patch angioplasty. Postoperatively patient was transferred to MICU. Patient does have history of TIA. Patient was found to have hemodynamically significant severe right ICA stenosis. Laboratory showed blood sugars elevated to 224 postoperatively. Other laboratory data is not available at this time. Review of Systems Constitutional: Patient denies any fever or chills . No generalized weakness or weight loss. Abdomen: Patient denied nausea vomiting and diarrhea and abdominal pain. Soreness of the throat. Cardiovascular: Patient denies any chest pain or short of breath no palpit ations. Respiratory: patient denied any cough or sputum production. No shortness of breath Neurologic: Patient denied any numbness or tingling. no headache. Musculoskeletal: Patient denies any complaints of joint swelling or deformity. Skin: Negative Psychiatric: Negative Endocrine: No heat or cold intolerance. No recent weight gain. Genitourinary: No dysuria or hematuria. All other 14 point ROS negative except the above Past Medical History Past Medical History: COPD, Diabetes Mellitus, Hypertension, Renal Disease, Vascular Disorder Additional Past Medical History / Comment(s): carotid stenosis,kassidy lower ext swelling,PVD,Just starting to show protein in kidneys, back pain, L5 & S1 fx from a fall,Difficult IV start,Hepatitis C at age 20s-resolved,covid infection 2022. History of Any Multi-Drug Resistant Organisms: None Reported Past Surgical History: Tonsillectomy Additional Past Surgical History / Comment(s): left knee arthoscopy. Past Anesthesia/Blood Transfusion Reactions: No Reported Reaction Additional Past Anesthesia/Blood Transfusion Reaction / Comm: no hx of blood transfusion Smoking Status: Current every day smoker - Past Family History Mother Family Medical History: Diabetes Mellitus, Renal Disease Sister(s) Family Medical History: Cancer Additional Family Medical History / Comment(s): stage 4 uterine CA Daughter(s) Family Medical History: Cancer Additional Family Medical History / Comment(s): skin CA Father Family Medical History: Myocardial Infarction ([place]) Additional Family Medical History / Comment(s): @ age 42 Medications and Allergies Home Medications Medication Instructions Recorded Confirmed Type Aspirin EC [Ecotrin Low Dose] 81 mg PO HS 05/08/21 01/13/24 History Furosemide [Lasix] 20 mg PO DAILY PRN 05/08/21 01/13/24 History HYDROcodone/APAP 5-325MG [[place] 1 tab PO BID PRN 05/08/21 01/13/24 History 5-325] Morphine Sulfate ER [Ms Contin] 30 mg PO Q12H 05/08/21 01/13/24 History Pantoprazole Sodium [Protonix] 40 mg PO QAM 05/08/21 01/13/24 History Pioglitazone [Actos] 15 mg PO DAILY 05/08/21 01/13/24 History busPIRone HCl [Buspar] 10 mg PO BID 05/08/21 01/13/24 History Albuterol Inhaler [Ventolin Hfa 2 puff INHALATION RT-QID PRN 08/27/22 01/13/24 History Inhaler] clonazePAM [KlonoPIN] 0.5 mg PO TID 08/27/22 01/13/24 History Metoprolol Tartrate [Lopressor] 25 mg PO BID 30 Days #60 tab 09/02/22 01/13/24 Rx Nicotine 21Mg/24Hr Patch [Habitrol] 1 patch TRANSDERM DAILY patch 09/02/22 01/13/24 Rx guaiFENesin [Mucinex] 600 mg PO Q12HR #20 tab 09/02/22 01/13/24 Rx Acetaminophen Tab [Tylenol] 325 - 650 mg PO Q6HR PRN 01/09/24 01/13/24 History Cetirizine HCl [Zyrtec] 10 mg PO DAILY 01/09/24 01/13/24 History Insulin NPL/Insulin Lispro 15 - 20 unit SQ DAILY@1800 01/09/24 01/13/24 History [humaLOG MIX 75-25 VIAL] Insulin NPL/Insulin Lispro 30 - 40 unit SQ QAM 01/09/24 01/13/24 History [humaLOG MIX 75-25 VIAL] diphenhydrAMINE [Benadryl] 25 mg PO DAILY PRN 01/09/24 01/13/24 History lisinopriL [Zestril] 5 mg PO QAM 01/09/24 01/13/24 History Allergies Allergy/AdvReac Type Severity Reaction Status Date / Time Hsrbyqb-YNO-NuL Reductase Allergy Swelling Verified 01/13/24 07:05 Inhibitor [[place]-Xxx-Kpd Reductase Inhibitor] Physical Exam Vitals: Vital Signs Temp Pulse Resp BP BP BP Pulse Ox 01/13/24 13:15 68 15 142/55 153/70 97 01/13/24 13:00 72 17 138/55 96 01/13/24 12:45 64 17 139/52 152/72 94 L 01/13/24 12:30 66 14 147/58 154/71 96 01/13/24 12:15 66 17 151/73 154/57 94 L 01/13/24 12:00 62 18 143/54 94 L 01/13/24 11:45 65 16 154/72 152/56 94 L 01/13/24 11:30 70 16 179/71 95 01/13/24 11:15 64 15 181/63 94 L 01/13/24 10:59 97 F L 59 L 18 187/66 99 01/13/24 10:38 70 20 185/70 01/13/24 08:05 60 16 100 01/13/24 07:14 98.0 F 63 16 179/80 97 Intake and Output 01/12/24 01/13/24 01/13/24 22:59 06:59 14:59 Intake Total 1568.000 Output Total 25 Balance 1543.000 Intake: IV 1552 Intake, IV Titration 16.000 Amount Clevidipine Butyrate 25 16.000 mg In Empty Bag 1 bag @ 1 MG/HR 2 mls/hr IV .Q24H [facility] Rx#:[id number] Output: Estimated Blood Loss 25 Other: Weight 116.4 kg PHYSICAL EXAMINATION: Patient is lying in the bed comfortably, no acute distress, awake alert and oriented.. HEENT: Normocephalic. Neck is supple. Pupils reactive. Nostrils clear. Oral cavity is moist. Neck reveals no JVD, carotid bruits, or thyromegaly. Right carotid surgery site bandaged. CHEST EXAMINATION: Trachea is central. Symmetrical expansion. Lung lopez clear to auscultation and percussion. CARDIAC: Normal S1, S2 with no gallops. No murmurs ABDOMEN: Soft. Bowel sounds normal. No organomegaly. No abdominal bruits. Extremities: reveal no edema. No clubbing or cyanosis Neurologically awake, alert, oriented x3 with well-coordinated movements. No focal deficits noted Skin: No rash or skin lesions. Psychiatric: Coperative. Nonsuicidal Musculoskeletal: No joint swelling or deformity. Normal range of motion. Results Labs: Abnormal Lab Results - Last 24 Hours (Table) 01/13/24 01/13/24 Range/Units 07:52 11:00 POC Glucose (mg/dL) 194 H 224 H (70-110) mg/dL Assessment and Plan Assessment: Status post right carotid endarterectomy due to hemodynamically significant stenosis. Postoperative day 0 Hyperglycemia with uncontrolled diabetes type 2 insulin-dependent Hypertension History of TIA Peripheral vascular disease Bilateral lower limb venous stasis changes and chronic swelling COPD not in exacerbation History hepatitis C Currently everyday smoker DVT prophylaxis as per primary team Plan: Patient will be continued on telemonitoring. Started back on insulin regimen 7030 as per home dose and sliding scale. Titrate dose as needed. Patient will be continued on home blood pressure medication including metoprolol and Lasix and continue with pain management, bowel regimen and encourage incentive spirometry. Continue GI and DVT prophylaxis. Further recommendations based on the clinical course. Thank you kindly for your consult. Smoking cessation has been counseled extensively. Time with Patient: Greater than 30
[2024-01-14 06:04] LABS: Basophils % (A) 0 %; Eosinophils # (A) 0.1 k/uL (0-0.7); Eosinophils % (A) 1 %; HCT 39.3 % (39.0-53.0); Lymphocytes # (A) 1.9 k/uL (1.0-4.8); Lymphocytes % (A) 15 %; MCH 32.6 pg (25.0-35.0); MCHC 33.2 g/dL (31.0-37.0); MCV 98.3 fL (80.0-100.0); Mean Platelet Volume 9.7; Monocytes # (A) 0.9 k/uL (0-1.0); Monocytes % (A) 8 %; Neutrophils # (A) 9.1 k/uL (1.3-7.7); Neutrophils % (A) 75 %; Platelet Count 198 k/uL (150-450); RDW 13.6 % (11.5-15.5); WBC 12.2 k/uL (3.8-10.6)
[2024-01-14 06:31] LABS: African American GFR (CKD) >90 (>60 ml/min/1.73 sqM); Anion Gap 1 mmol/L; Blood Urea Nitrogen 21 mg/dL (9-20); Calcium 8.4 mg/dL (8.4-10.2); Carbon Dioxide 28 mmol/L (22-30); Chloride 108 mmol/L (98-107); Glucose 251 mg/dL (74-99); Non-African American GFR(CKD) 90 (>60 ml/min/1.73 sqM); Potassium 4.4 mmol/L (3.5-5.1); Sodium 137 mmol/L (137-145)
[2024-01-14 06:46] LABS: Glucose,Whole Blood 294 mg/dL (70-110)
[2024-01-14] MEDS: INSULIN ASPART (NovoLOG) 100 UNIT/ML VIAL SQ SCH (06:49)
[2024-01-14] MEDS: INSULN ASP PRT/INSULIN ASPART 100 UNIT/ML 10 ML VIAL SQ SCH (06:49)
[2024-01-14] MEDS: PANTOPRAZOLE 40 MG TABLET PO SCH (08:02)
[2024-01-14] MEDS: PIOGLITAZONE 15 MG TAB PO SCH (08:03)
--- NOTE | 2024-01-14 10:49 | P.PN ---
Subjective Progress Note Date: 01/14/24 Principal diagnosis: Postop day #1 status post right carotid endarterectomy. Patient is in the ICU for blood pressure control issues. Objective - Vital Signs Vital signs: Vital Signs Temp 98.2 F 01/14/24 08:00 Pulse 74 01/14/24 10:15 Resp 14 01/14/24 10:15 BP 164/78 01/13/24 16:30 Pulse Ox 90 L 01/14/24 10:15 FiO2 Intake & Output 01/13/24 01/14/24 01/14/24 18:59 06:59 18:59 Intake Total 1908.867 75.999 Output Total 275 1750 0 Balance 1633.867 -1674.001 0 Weight 116.4 kg 119.4 kg Intake: IV 1852 Intake, IV Titration 56.867 75.999 Amount Clevidipine Butyrate 25 34.467 75.999 mg In Empty Bag 1 bag @ 1 MG/HR 2 mls/hr IV .Q24H [facility] Rx#:[id number] Nitroglycerin-D5w Pmx 50 22.4 mg In Dextrose/Water 1 250ml.bag @ 20 MCG/MIN 6 mls/hr IV .Q24H [facility] Rx#: [id number] Output: Urine 250 1750 0 Estimated Blood Loss 25 Other: Voiding Method Urinal Urinal Urinal # Voids 0 ABP, PAP, CO, CI - Last Documented Arterial Blood Pressure 133/40 - Exam Patient is awake, alert in no apparent distress. Tongue is essentially midline. Patient swallows water without issue. No upper or lower extremity deficit noted. - Labs CBC & Chem 7: 01/14/24 05:51 01/14/24 05:51 Labs: Abnormal Lab Results - Last 24 Hours (Table) 01/13/24 01/13/24 01/13/24 Range/Units 11:00 14:47 19:58 WBC (3.8-10.6) k/uL RBC (4.30-5.90) m/uL Neutrophils # (1.3-7.7) k/uL Chloride (98-107) mmol/L BUN (9-20) mg/dL Glucose (74-99) mg/dL POC Glucose (mg/dL) 224 H 224 H 268 H (70-110) mg/dL Hemoglobin A1c (<=6.0) % 01/14/24 01/14/24 01/14/24 Range/Units 05:51 05:51 05:51 WBC 12.2 H (3.8-10.6) k/uL RBC 4.00 L (4.30-5.90) m/uL Neutrophils # 9.1 H (1.3-7.7) k/uL Chloride 108 H (98-107) mmol/L BUN 21 H (9-20) mg/dL Glucose 251 H (74-99) mg/dL POC Glucose (mg/dL) (70-110) mg/dL Hemoglobin A1c 8.4 H (<=6.0) % 01/14/24 Range/Units 06:45 WBC (3.8-10.6) k/uL RBC (4.30-5.90) m/uL Neutrophils # (1.3-7.7) k/uL Chloride (98-107) mmol/L BUN (9-20) mg/dL Glucose (74-99) mg/dL POC Glucose (mg/dL) 294 H (70-110) mg/dL Hemoglobin A1c (<=6.0) % Assessment and Plan Assessment: Postop day #1 status post right carotid endarterectomy. Plan: 1: Patient surgically stable for discharge once blood pressure issues are resolved. Time with Patient: Less than 30
[2024-01-14] MEDS: lisinopriL 5 MG TAB PO SCH (10:53)
[2024-01-14] MEDS: HYDROcodone/APAP 5-325MG 1 EACH TAB PO PRN (10:53)
[2024-01-14] MEDS: FUROSEMIDE 10 MG TAB PO STA (11:34)
[2024-01-14 11:48] LABS: Glucose,Whole Blood 226 mg/dL (70-110)
[2024-01-14] MEDS: hydrALAZINE HCL 25 MG TAB PO SCH (14:33)
[2024-01-14] MEDS: lisinopriL 10 MG TAB PO SCH (14:33)
[2024-01-14] MEDS: ACETAMINOPHEN TAB 325 MG TAB PO PRN (14:38)
[2024-01-14 16:26] LABS: Glucose,Whole Blood 221 mg/dL (70-110)
[2024-01-14 20:10] LABS: Glucose,Whole Blood 272 mg/dL (70-110)
[2024-01-15 06:51] LABS: Glucose,Whole Blood 226 mg/dL (70-110)
[2024-01-15 07:07] LABS: HCT 37.7 % (39.0-53.0); HGB 12.4 gm/dL (13.0-17.5); MCH 32.7 pg (25.0-35.0); MCV 99.2 fL (80.0-100.0); Mean Platelet Volume 9.2; Platelet Count 174 k/uL (150-450); RDW 13.2 % (11.5-15.5); WBC 10.2 k/uL (3.8-10.6)
[2024-01-15 07:19] LABS: African American GFR (CKD) >90 (>60 ml/min/1.73 sqM); Anion Gap 0 mmol/L; Blood Urea Nitrogen 22 mg/dL (9-20); Calcium 8.3 mg/dL (8.4-10.2); Carbon Dioxide 29 mmol/L (22-30); Chloride 105 mmol/L (98-107); Glucose 227 mg/dL (74-99); Non-African American GFR(CKD) 87 (>60 ml/min/1.73 sqM); Potassium 3.9 mmol/L (3.5-5.1); Sodium 134 mmol/L (137-145)
[2024-01-15] MEDS: METOPROLOL TARTRATE 50 MG TAB PO SCH (08:36)
[2024-01-15] MEDS: lisinopriL 20 MG TAB PO SCH (08:36)
[2024-01-15] MEDS: hydrALAZINE HCL 25 MG TAB PO SCH (08:36)
[2024-01-15] MEDS: lisinopriL 10 MG TAB PO STA (09:02)
[2024-01-15] MEDS: METOPROLOL TARTRATE 25 MG TAB PO STA (09:02)
--- NOTE | 2024-01-15 09:21 | P.PN ---
Subjective Progress Note Date: 01/15/24 Patient seen and examined at bedside. He states he is doing well and denies any lateralizing symptoms such as weakness, vision changes or speech issues. Per nursing patient still on antihypertensive drip and currently weaning. Objective - Vital Signs Vital signs: Vital Signs Temp 98.3 F 01/15/24 08:00 Pulse 80 01/15/24 09:00 Resp 14 01/15/24 09:00 BP 157/74 01/15/24 05:45 Pulse Ox 94 L 01/15/24 09:00 FiO2 Intake & Output 01/14/24 01/15/24 01/15/24 18:59 06:59 18:59 Intake Total 56.034 343.833 53.233 Output Total 1 1575 300 Balance 55.034 -1231.167 -246.767 Weight 121 kg Intake: IV 200 40 Lactated Ringers 1,000 ml 200 40 @ 20 mls/hr IV .Q24H [facility] Rx#:[id number] Intake, IV Titration 56.034 143.833 13.233 Amount Clevidipine Butyrate 25 56.034 143.833 13.233 mg In Empty Bag 1 bag @ 1 MG/HR 2 mls/hr IV .Q24H [facility] Rx#:[id number] Output: Urine 1 1575 300 Urine/Stool Mix 0 Other: Voiding Method Toilet Toilet Toilet Urinal Urinal Urinal # Voids 0 1 0 ABP, PAP, CO, CI - Last Documented Arterial Blood Pressure 129/45 - Exam Incision site is clean, dry and intact. No hematoma or sign of infection. No focal deficits. Tongue is midline. No facial droop - Labs CBC & Chem 7: 01/15/24 06:50 01/15/24 06:50 Labs: Abnormal Lab Results - Last 24 Hours (Table) 01/14/24 01/14/24 01/14/24 Range/Units 05:51 11:46 16:25 RBC (4.30-5.90) m/uL Hgb (13.0-17.5) gm/dL Hct (39.0-53.0) % Sodium (137-145) mmol/L BUN (9-20) mg/dL Glucose (74-99) mg/dL POC Glucose (mg/dL) 226 H 221 H (70-110) mg/dL Hemoglobin A1c 8.4 H (<=6.0) % Calcium (8.4-10.2) mg/dL 01/14/24 01/15/24 01/15/24 Range/Units 20:09 06:50 06:50 RBC 3.80 L (4.30-5.90) m/uL Hgb 12.4 L (13.0-17.5) gm/dL Hct 37.7 L (39.0-53.0) % Sodium 134 L (137-145) mmol/L BUN 22 H (9-20) mg/dL Glucose 227 H (74-99) mg/dL POC Glucose (mg/dL) 272 H (70-110) mg/dL Hemoglobin A1c (<=6.0) % Calcium 8.3 L (8.4-10.2) mg/dL 01/15/24 Range/Units 06:50 RBC (4.30-5.90) m/uL Hgb (13.0-17.5) gm/dL Hct (39.0-53.0) % Sodium (137-145) mmol/L BUN (9-20) mg/dL Glucose (74-99) mg/dL POC Glucose (mg/dL) 226 H (70-110) mg/dL Hemoglobin A1c (<=6.0) % Calcium (8.4-10.2) mg/dL Assessment and Plan Assessment: Postop day 2 right carotid endarterectomy and patch angioplasty Uncontrolled hypertension Plan: Continue to wean off antihypertensive drip Internal medicine for antihypertensive medication upon discharge. Patient is stable from a surgical standpoint once hypertension is controlled
--- NOTE | 2024-01-15 10:14 | P.PN ---
Subjective Progress Note Date: 01/14/24 Patient is a 73-year-old male with a past medical history of hypertension, diabetes type 2 insulin-dependent, peripheral vascular disease, carotid stenosis and COPD was admitted to hospital for elective right carotid endarterectomy. Patient is s/p right carotid endarterectomy with patch angioplasty. Post operatively patient was transferred to MICU. Patient does have history of TIA. Patient was found to have hemodynamically significant severe right ICA stenosis. Laboratory showed blood sugars elevated to 224 postoperatively. Other laboratory data is not available at this time. 01/14/2024 Patient is sitting in the chair. Currently on room air. Awake alert and oriented. No complaints of chest pain or shortness of breath. Pain is controlled. Otherwise patient is still on Cleviprex drip which is being tapered down. Blood pressure is elevated with SBP in 170s this morning. Patient is being continued on Norvasc and lisinopril and metoprolol. Patient is also on Lasix. Hydralazine was added. Laboratory data showed WBC 12.2 hemoglobin 13.0 and platelets 198 sodium 137 potassium 4.4 chloride 108 bicarb is 28 BUN 21 and creatinine 0.78 and blood sugar is 251 and A1c level 8.4. Current medications reviewed. Objective - Vital Signs Vital signs: Vital Signs Temp 98.4 F 01/14/24 12:00 Pulse 68 01/14/24 13:15 Resp 20 01/14/24 13:15 BP 164/78 01/13/24 16:30 Pulse Ox 96 01/14/24 13:15 FiO2 Intake & Output 01/13/24 01/14/24 01/14/24 18:59 06:59 18:59 Intake Total 1908.867 75.999 16.467 Output Total 275 1750 0 Balance 1633.867 -1674.001 16.467 Weight 116.4 kg 119.4 kg Intake: IV 1852 Intake, IV Titration 56.867 75.999 16.467 Amount Clevidipine Butyrate 25 34.467 75.999 16.467 mg In Empty Bag 1 bag @ 1 MG/HR 2 mls/hr IV .Q24H [facility] Rx#:[id number] Nitroglycerin-D5w Pmx 50 22.4 mg In Dextrose/Water 1 250ml.bag @ 20 MCG/MIN 6 mls/hr IV .Q24H [facility] Rx#: [id number] Output: Urine 250 1750 0 Estimated Blood Loss 25 Other: Voiding Method Urinal Urinal Urinal # Voids 0 ABP, PAP, CO, CI - Last Documented Arterial Blood Pressure 147/62 - Exam PHYSICAL EXAMINATION: Patient is lying in the bed comfortably, no acute distress, awake alert and oriented.. HEENT: Normocephalic. Neck is supple. Pupils reactive. Nostrils clear. Oral cavity is moist. Neck reveals no JVD, carotid bruits, or thyromegaly. Right carotid surgery site bandaged. CHEST EXAMINATION: Trachea is central. Symmetrical expansion. Lung lopez clear to auscultation and percussion. CARDIAC: Normal S1, S2 with no gallops. No murmurs ABDOMEN: Soft. Bowel sounds normal. No organomegaly. No abdominal bruits. Extremities: reveal no edema. No clubbing or cyanosis Neurologically awake, alert, oriented x3 with well-coordinated movements. No focal deficits noted Skin: No rash or skin lesions. Psychiatric: Coperative. Nonsuicidal Musculoskeletal: No joint swelling or deformity. Normal range of motion. - Labs CBC & Chem 7: 01/15/24 06:50 01/15/24 06:50 Labs: Abnormal Lab Results - Last 24 Hours (Table) 01/13/24 01/13/24 01/14/24 Range/Units 14:47 19:58 05:51 WBC (3.8-10.6) k/uL RBC (4.30-5.90) m/uL Neutrophils # (1.3-7.7) k/uL Chloride (98-107) mmol/L BUN (9-20) mg/dL Glucose (74-99) mg/dL POC Glucose (mg/dL) 224 H 268 H (70-110) mg/dL Hemoglobin A1c 8.4 H (<=6.0) % 01/14/24 01/14/24 01/14/24 Range/Units 05:51 05:51 06:45 WBC 12.2 H (3.8-10.6) k/uL RBC 4.00 L (4.30-5.90) m/uL Neutrophils # 9.1 H (1.3-7.7) k/uL Chloride 108 H (98-107) mmol/L BUN 21 H (9-20) mg/dL Glucose 251 H (74-99) mg/dL POC Glucose (mg/dL) 294 H (70-110) mg/dL Hemoglobin A1c (<=6.0) % 01/14/24 Range/Units 11:46 WBC (3.8-10.6) k/uL RBC (4.30-5.90) m/uL Neutrophils # (1.3-7.7) k/uL Chloride (98-107) mmol/L BUN (9-20) mg/dL Glucose (74-99) mg/dL POC Glucose (mg/dL) 226 H (70-110) mg/dL Hemoglobin A1c (<=6.0) % Assessment and Plan Assessment: Status post right carotid endarterectomy due to hemodynamically significant stenosis. Postoperative day 1 Hyperglycemia with uncontrolled diabetes type 2 insulin-dependent. A1c 8.4 Uncontrolled hypertension History of TIA Peripheral vascular disease Bilateral lower limb venous stasis changes and chronic swelling COPD not in exacerbation History hepatitis C Currently everyday smoker DVT prophylaxis as per primary team Plan: Patient will be continued on telemonitoring. Started back on insulin regimen 7030 as per home dose and sliding scale. Titrate dose as needed. Patient will be continued on home blood pressure medication including metoprolol lisinopril and Lasix and continue with pain management. Continue to wean off Cleviprex drip. Hydralazine 25 mg twice daily was added. Bowel regimen and encourage incentive spirometry. Continue GI and DVT prophylaxis. Further recommendations based on the clinical course. Anticipate discharge once blood pressure is better controlled. Follow-up closely. Smoking cessation has been counseled extensively. Time with Patient: Greater than 30
--- NOTE | 2024-01-15 11:34 | P.CNPUL ---
History of Present Illness Consult date: 01/15/24 Requesting physician: Amador Willard Reason for consult: other (ICU management) Chief complaint: Carotid artery stenosis, status post right carotid endarterectomy History of present illness: This is a 73-year-old white male with history of hypertension, type 2 diabetes, peripheral vessel occlusive disease, carotid artery stenosis, underlying COPD, patient underwent elective right carotid endarterectomy, and he had patch angioplasty. Postoperatively the patient was admitted to the ICU, and apparently the patient had a recent history of TIA. In the ICU, the patient was placed on his usual blood pressure medications, but nonetheless his blood pressure remains poorly controlled, and he is requiring Cleviprex drip. Today I saw the patient mostly for poorly controlled blood pressure, and I have adjusted his oral medications by increasing his lisinopril to 20 mg daily hydralazine was made to 25 mg 3 times daily and I increased his Lopressor to 50 mg twice daily. In the meantime we will continue to titrate his Cleviprex. Patient is asymptomatic, denies any headaches denies any shortness of breath, no chest pain, no palpitations, and no nausea no vomiting no abdominal pain. WBC count today is 10.2 hemoglobin 12.4 basic metabolic profile is normal and renal profile is normal Review of Systems REVIEW OF SYSTEMS: CONSTITUTIONAL: Negative. EYES: Negative. ENT: Negative. CARDIAC: Negative. PULMONARY: As above. GI: Negative. GENITOURINARY: Negative. MUSCULOSKELETAL: Negative. SKIN: Negative. NEUROPSYCH: Negative. ENDOCRINE: Negative. HEMATOLOGIC: Negative. Past Medical History Past Medical History: COPD, Diabetes Mellitus, Hypertension, Renal Disease, Vascular Disorder Additional Past Medical History / Comment(s): carotid stenosis,kassidy lower ext swelling,PVD,Just starting to show protein in kidneys, back pain, L5 & S1 fx from a fall,Difficult IV start,Hepatitis C at age 20s-resolved,covid infection 2022. History of Any Multi-Drug Resistant Organisms: None Reported Past Surgical History: Tonsillectomy Additional Past Surgical History / Comment(s): left knee arthoscopy. Past Anesthesia/Blood Transfusion Reactions: No Reported Reaction Additional Past Anesthesia/Blood Transfusion Reaction / Comment(s): no hx of blood transfusion Smoking Status: Current every day smoker - Past Family History Mother Family Medical History: Diabetes Mellitus, Renal Disease Sister(s) Family Medical History: Cancer Additional Family Medical History / Comment(s): stage 4 uterine CA Daughter(s) Family Medical History: Cancer Additional Family Medical History / Comment(s): skin CA Father Family Medical History: Myocardial Infarction (VT) Additional Family Medical History / Comment(s): @ age 42 Medications and Allergies Home Medications Medication Instructions Recorded Confirmed Type Aspirin EC [Ecotrin Low Dose] 81 mg PO HS 05/08/21 01/13/24 History Furosemide [Lasix] 20 mg PO DAILY PRN 05/08/21 01/13/24 History HYDROcodone/APAP 5-325MG [Gifford 1 tab PO BID PRN 05/08/21 01/13/24 History 5-325] Morphine Sulfate ER [Ms Contin] 30 mg PO Q12H 05/08/21 01/13/24 History Pantoprazole Sodium [Protonix] 40 mg PO QAM 05/08/21 01/13/24 History Pioglitazone [Actos] 15 mg PO DAILY 05/08/21 01/13/24 History busPIRone HCl [Buspar] 10 mg PO BID 05/08/21 01/13/24 History Albuterol Inhaler [Ventolin Hfa 2 puff INHALATION RT-QID PRN 08/27/22 01/13/24 History Inhaler] clonazePAM [KlonoPIN] 0.5 mg PO TID 08/27/22 01/13/24 History Metoprolol Tartrate [Lopressor] 25 mg PO BID 30 Days #60 tab 09/02/22 01/13/24 Rx Nicotine 21Mg/24Hr Patch [Habitrol] 1 patch TRANSDERM DAILY patch 09/02/22 01/13/24 Rx guaiFENesin [Mucinex] 600 mg PO Q12HR #20 tab 09/02/22 01/13/24 Rx Acetaminophen Tab [Tylenol] 325 - 650 mg PO Q6HR PRN 01/09/24 01/13/24 History Cetirizine HCl [Zyrtec] 10 mg PO DAILY 01/09/24 01/13/24 History Insulin NPL/Insulin Lispro 15 - 20 unit SQ DAILY@1800 01/09/24 01/13/24 History [humaLOG MIX 75-25 VIAL] Insulin NPL/Insulin Lispro 30 - 40 unit SQ QAM 01/09/24 01/13/24 History [humaLOG MIX 75-25 VIAL] diphenhydrAMINE [Benadryl] 25 mg PO DAILY PRN 01/09/24 01/13/24 History lisinopriL [Zestril] 5 mg PO QAM 01/09/24 01/13/24 History Allergies Allergy/AdvReac Type Severity Reaction Status Date / Time Extdwdb-IWR-ShD Reductase Allergy Swelling Verified 01/13/24 07:05 Inhibitor [Zmlbyix-Aop-Jaa Reductase Inhibitor] Physical Exam Vitals: Vital Signs Temp Pulse Resp BP Pulse Ox 01/15/24 11:00 60 15 01/15/24 10:55 60 15 01/15/24 10:50 61 14 01/15/24 10:45 75 13 01/15/24 10:40 69 15 93 L 01/15/24 10:35 71 13 01/15/24 10:30 72 10 L 01/15/24 10:25 74 14 01/15/24 10:20 75 14 01/15/24 10:15 80 11 L 223/147 01/15/24 10:10 92 9 L 01/15/24 10:05 64 15 01/15/24 10:00 64 15 01/15/24 09:55 67 16 01/15/24 09:50 65 15 01/15/24 09:45 71 15 01/15/24 09:40 74 17 01/15/24 09:35 65 17 01/15/24 09:30 71 17 01/15/24 09:25 69 15 01/15/24 09:20 79 17 01/15/24 09:15 79 13 01/15/24 09:10 81 13 01/15/24 09:05 73 12 01/15/24 09:00 80 14 94 L 01/15/24 08:45 89 10 L 01/15/24 08:30 92 11 L 94 L 01/15/24 08:15 90 14 01/15/24 08:00 98.3 F 93 14 93 L 01/15/24 07:45 94 15 01/15/24 07:00 87 10 L 01/15/24 06:45 93 6 L 01/15/24 06:30 84 16 01/15/24 06:15 92 15 01/15/24 06:00 93 16 01/15/24 05:45 101 H 6 L 157/74 07/14/24 05:30 90 17 01/15/24 05:15 90 17 01/15/24 05:00 89 18 01/15/24 04:45 89 14 01/15/24 04:30 90 12 01/15/24 04:15 89 17 01/15/24 04:00 98.3 F 90 17 98 01/15/24 03:45 85 01/15/24 03:30 93 01/15/24 03:00 91 12 01/15/24 02:45 92 01/15/24 02:30 89 01/15/24 02:15 88 01/15/24 02:00 86 22 01/15/24 01:45 85 01/15/24 01:30 85 01/15/24 01:15 88 01/15/24 01:00 90 18 01/15/24 00:45 90 01/15/24 00:30 90 0 L 01/15/24 00:15 90 19 01/15/24 00:00 98.5 F 89 17 01/14/24 23:45 91 19 01/14/24 23:30 95 15 01/14/24 23:15 106 H 20 01/14/24 23:00 106 H 10 L 86 L 01/14/24 22:30 98 21 95 01/14/24 22:18 96 19 95 01/14/24 22:15 96 20 95 01/14/24 22:00 96 19 94 L 01/14/24 21:45 97 16 88 L 01/14/24 21:30 105 H 01/14/24 21:15 98 01/14/24 21:00 94 12 01/14/24 20:45 99 01/14/24 20:30 98 01/14/24 20:00 98.3 F 93 10 L 01/14/24 19:45 103 H 01/14/24 19:30 100 01/14/24 19:15 103 H 01/14/24 19:00 102 H 90 L 01/14/24 18:45 96 90 L 01/14/24 18:30 93 91 L 01/14/24 18:15 93 14 93 L 01/14/24 18:00 84 14 94 L 01/14/24 17:45 99 10 L 97 01/14/24 17:30 95 12 01/14/24 17:15 80 16 96 01/14/24 17:00 91 21 97 01/14/24 16:45 84 11 L 01/14/24 16:30 79 12 92 L 01/14/24 16:15 71 14 92 L 01/14/24 16:00 73 14 91 L 01/14/24 15:45 78 14 93 L 01/14/24 15:30 73 12 92 L 01/14/24 15:15 79 19 94 L 01/14/24 15:00 80 17 01/14/24 14:45 70 16 186/83 97 01/14/24 14:30 63 14 170/90 96 01/14/24 14:15 64 9 L 96 01/14/24 14:00 64 15 97 01/14/24 13:45 60 5 L 98 01/14/24 13:30 60 10 L 96 01/14/24 13:15 68 20 96 01/14/24 13:00 60 14 98 01/14/24 12:45 62 14 85 L 01/14/24 12:30 67 15 97 01/14/24 12:15 74 12 93 L 01/14/24 12:00 98.4 F 79 15 96 01/14/24 11:45 79 14 95 01/14/24 11:30 74 21 94 L Intake and Output 01/14/24 01/15/24 01/15/24 22:59 06:59 14:59 Intake Total 123.6 253.833 81.567 Output Total 401 1175 500 Balance -277.4 -921.167 -418.433 Intake: IV 40 160 60 Lactated Ringers 1,000 ml 40 160 60 @ 20 mls/hr IV .Q24H [facility] Rx#:[id number] Intake, IV Titration 83.6 93.833 21.567 Amount Clevidipine Butyrate 25 83.6 93.833 21.567 mg In Empty Bag 1 bag @ 1 MG/HR 2 mls/hr IV .Q24H [facility] Rx#:[id number] Output: Urine 401 1175 500 Urine/Stool Mix 0 Other: Voiding Method Toilet Toilet Toilet Urinal Urinal Urinal # Voids 0 1 0 Weight 121 kg ABP, PAP, CO, CI - Last 8 Hours Arterial Blood Pressure 129/43 Arterial Blood Pressure 133/45 Arterial Blood Pressure 130/45 Arterial Blood Pressure 131/46 Arterial Blood Pressure 149/52 Arterial Blood Pressure 149/52 Arterial Blood Pressure 148/51 Arterial Blood Pressure 149/52 Arterial Blood Pressure 158/54 Arterial Blood Pressure 193/68 Arterial Blood Pressure 232/90 Arterial Blood Pressure 150/50 Arterial Blood Pressure 154/55 Arterial Blood Pressure 167/58 Arterial Blood Pressure 150/50 Arterial Blood Pressure 168/62 Arterial Blood Pressure 160/58 Arterial Blood Pressure 149/52 Arterial Blood Pressure 156/55 Arterial Blood Pressure 152/55 Arterial Blood Pressure 152/54 Arterial Blood Pressure 156/58 Arterial Blood Pressure 145/53 Arterial Blood Pressure 148/56 Arterial Blood Pressure 129/45 Arterial Blood Pressure 138/48 Arterial Blood Pressure 150/56 Arterial Blood Pressure 152/57 Arterial Blood Pressure 151/57 Arterial Blood Pressure 170/67 Arterial Blood Pressure 159/60 Arterial Blood Pressure 147/56 Arterial Blood Pressure 138/53 Arterial Blood Pressure 145/55 Arterial Blood Pressure 147/59 Arterial Blood Pressure 171/73 Arterial Blood Pressure 155/57 Arterial Blood Pressure 156/60 Arterial Blood Pressure 153/56 Arterial Blood Pressure 167/62 Arterial Blood Pressure 155/57 Arterial Blood Pressure 141/53 Arterial Blood Pressure 148/55 Arterial Blood Pressure 145/55 Arterial Blood Pressure 162/70 General: Reveals 73-year-old white male pleasant in no distress on room air HEENT: Normocephalic. Neck is supple. Pupils reactive. Neck supple no neck masses, right carotid surgery site bandage CHEST EXAMINATION: Symmetrical chest expansion, clear breath sound bilaterally no rhonchi no wheezes CARDIAC: Normal S1, S2 with no gallops. No murmurs ABDOMEN: Soft nontender no megaly no rebound no guarding Extremities: no clubbing edema or cyanosis Neurologically alert and oriented x 3 no gross focal deficit Skin: No rash or skin lesions. Psychiatric: Normal mood affect and normal mental status examination Musculoskeletal: No deformities and no limitation range of motion Results - Laboratory Findings CBC and BMP: 01/15/24 06:50 01/15/24 06:50 Abnormal lab findings: Abnormal Labs 01/13/24 01/13/24 01/13/24 07:52 11:00 14:47 WBC RBC Hgb Hct Neutrophils # Sodium Chloride BUN Glucose POC Glucose (mg/dL) 194 H 224 H 224 H Hemoglobin A1c Calcium 01/13/24 01/14/24 01/14/24 19:58 05:51 05:51 WBC 12.2 H RBC 4.00 L Hgb Hct Neutrophils # 9.1 H Sodium Chloride BUN Glucose POC Glucose (mg/dL) 268 H Hemoglobin A1c 8.4 H Calcium 01/14/24 01/14/24 01/14/24 05:51 06:45 11:46 WBC RBC Hgb Hct Neutrophils # Sodium Chloride 108 H BUN 21 H Glucose 251 H POC Glucose (mg/dL) 294 H 226 H Hemoglobin A1c Calcium 01/14/24 01/14/24 01/15/24 16:25 20:09 06:50 WBC RBC 3.80 L Hgb 12.4 L Hct 37.7 L Neutrophils # Sodium Chloride BUN Glucose POC Glucose (mg/dL) 221 H 272 H Hemoglobin A1c Calcium 01/15/24 01/15/24 06:50 06:50 WBC RBC Hgb Hct Neutrophils # Sodium 134 L Chloride BUN 22 H Glucose 227 H POC Glucose (mg/dL) 226 H Hemoglobin A1c Calcium 8.3 L Assessment and Plan Assessment: Impression: Status post right carotid endarterectomy postoperative day #2 Poorly controlled blood pressure requiring Cleviprex, and multiple oral medications. History of underlying COPD, inactive History of hepatitis C Tobacco dependence syndrome History of TIA Recommendation: Continue to monitor in the ICU Taper and possibly discontinue Cleviprex today Increase lisinopril to 20 mg daily Increase Lopressor to 50 mg twice daily Increase hydralazine to 25 mg p.o. 3 times daily Continue GI and DVT prophylaxis Will continue to follow Time with Patient: Greater than 30
[2024-01-15 11:40] LABS: Glucose,Whole Blood 184 mg/dL (70-110)
[2024-01-15] MEDS: cloNIDine HCL 0.1 MG TAB PO SCH (12:33)
[2024-01-15 16:57] LABS: Glucose,Whole Blood 252 mg/dL (70-110)
--- NOTE | 2024-01-15 21:52 | P.PN ---
Subjective Progress Note Date: 01/15/24 Patient is a 73-year-old male with a past medical history of hypertension, diabetes type 2 insulin-dependent, peripheral vascular disease, carotid stenosis and COPD was admitted to hospital for elective right carotid endarterectomy. Patient is s/p right carotid endarterectomy with patch angioplasty. Post operatively patient was transferred to MICU. Patient does have history of TIA. Patient was found to have hemodynamically significant severe right ICA stenosis. Laboratory showed blood sugars elevated to 224 postoperatively. Other laboratory data is not available at this time. 01/14/2024 Patient is sitting in the chair. Currently on room air. Awake alert and oriented. No complaints of chest pain or shortness of breath. Pain is controlled. Otherwise patient is still on Cleviprex drip which is being tapered down. Blood pressure is elevated with SBP in 170s this morning. Patient is being continued on Norvasc and lisinopril and metoprolol. Patient is also on Lasix. Hydralazine was added. Laboratory data showed WBC 12.2 hemoglobin 13.0 and platelets 198 sodium 137 potassium 4.4 chloride 108 bicarb is 28 BUN 21 and creatinine 0.78 and blood sugar is 251 and A1c level 8.4. 01/15/2024 Patient is currently lying in the bed. Awake alert and oriented x 3. Denies any complaints of headache or dizziness or lightheadedness. Patient's blood pressure is still elevated and is being continued on Cleviprex drip at 4 mg/h. No complaints of chest pain or shortness of breath. No nausea vomiting or abdominal pain or diarrhea. Laboratory data showed WBC 10.2 hemoglobin 12.4 and platelets 174 sodium 134 potassium 3.9 chloride 105 bicarb is 29 BUN 2020 creatinine 0.85 and blood sugar is 226. Calcium 8.3. Current medications reviewed. Objective - Vital Signs Vital signs: Vital Signs Temp 98.3 F 01/15/24 08:00 Pulse 92 01/15/24 10:10 Resp 9 L 01/15/24 10:10 BP 157/74 01/15/24 05:45 Pulse Ox 94 L 01/15/24 09:00 FiO2 Intake & Output 01/14/24 01/15/24 01/15/24 18:59 06:59 18:59 Intake Total 56.034 343.833 54.100 Output Total 1 1575 300 Balance 55.034 -1231.167 -245.900 Weight 121 kg Intake: IV 200 40 Lactated Ringers 1,000 ml 200 40 @ 20 mls/hr IV .Q24H [facility] Rx#:[id number] Intake, IV Titration 56.034 143.833 14.100 Amount Clevidipine Butyrate 25 56.034 143.833 14.100 mg In Empty Bag 1 bag @ 1 MG/HR 2 mls/hr IV .Q24H [facility] Rx#:[id number] Output: Urine 1 1575 300 Urine/Stool Mix 0 Other: Voiding Method Toilet Toilet Toilet Urinal Urinal Urinal # Voids 0 1 0 ABP, PAP, CO, CI - Last Documented Arterial Blood Pressure 232/90 - Exam PHYSICAL EXAMINATION: Patient is lying in the bed comfortably, no acute distress, awake alert and oriented.. HEENT: Normocephalic. Neck is supple. Pupils reactive. Nostrils clear. Oral cavity is moist. Neck reveals no JVD, carotid bruits, or thyromegaly. Right carotid surgery site bandaged. CHEST EXAMINATION: Trachea is central. Symmetrical expansion. Lung lopez clear to auscultation and percussion. CARDIAC: Normal S1, S2 with no gallops. No murmurs ABDOMEN: Soft. Bowel sounds normal. No organomegaly. No abdominal bruits. Extremities: reveal no edema. No clubbing or cyanosis Neurologically awake, alert, oriented x3 with well-coordinated movements. No focal deficits noted Skin: No rash or skin lesions. Psychiatric: Coperative. Nonsuicidal Musculoskeletal: No joint swelling or deformity. Normal range of motion. - Labs CBC & Chem 7: 01/15/24 06:50 01/15/24 06:50 Labs: Abnormal Lab Results - Last 24 Hours (Table) 01/14/24 01/14/24 01/14/24 Range/Units 11:46 16:25 20:09 RBC (4.30-5.90) m/uL Hgb (13.0-17.5) gm/dL Hct (39.0-53.0) % Sodium (137-145) mmol/L BUN (9-20) mg/dL Glucose (74-99) mg/dL POC Glucose (mg/dL) 226 H 221 H 272 H (70-110) mg/dL Calcium (8.4-10.2) mg/dL 01/15/24 01/15/24 01/15/24 Range/Units 06:50 06:50 06:50 RBC 3.80 L (4.30-5.90) m/uL Hgb 12.4 L (13.0-17.5) gm/dL Hct 37.7 L (39.0-53.0) % Sodium 134 L (137-145) mmol/L BUN 22 H (9-20) mg/dL Glucose 227 H (74-99) mg/dL POC Glucose (mg/dL) 226 H (70-110) mg/dL Calcium 8.3 L (8.4-10.2) mg/dL Assessment and Plan Assessment: Status post right carotid endarterectomy due to hemodynamically significant stenosis. Postoperative day 2 Hyperglycemia with uncontrolled diabetes type 2 insulin-dependent. A1c 8.4 Uncontrolled hypertension History of TIA Peripheral vascular disease Bilateral lower limb venous stasis changes and chronic swelling COPD not in exacerbation History hepatitis C Currently everyday smoker DVT prophylaxis as per primary team Plan: Patient will be continued on telemonitoring. Started back on insulin regimen 70/30 as per home dose and sliding scale. Titrate dose as needed. Patient will be continued on home blood pressure medication including metoprolol lisinopril and Lasix and continue with pain management. Continue to wean off Cleviprex drip. Hydralazine changed to 25 mg 3 times daily. Catapres dose was added. Bowel regimen and encourage incentive spirometry. Continue GI and DVT prophylaxis. Further recommendations based on the clinical course. Anticipate discharge once blood pressure is better controlled. Discussed with his in detail. Smoking cessation has been counseled extensively. Time with Patient: Greater than 30
[2024-01-15 22:04] LABS: Glucose,Whole Blood 179 mg/dL (70-110)
[2024-01-16 06:28] LABS: Basophils % (A) 0 %; Eosinophils # (A) 0.2 k/uL (0-0.7); Eosinophils % (A) 3 %; HCT 37.6 % (39.0-53.0); HGB 12.2 gm/dL (13.0-17.5); Lymphocytes % (A) 29 %; MCH 32.3 pg (25.0-35.0); MCHC 32.5 g/dL (31.0-37.0); MCV 99.3 fL (80.0-100.0); Mean Platelet Volume 8.9; Monocytes # (A) 0.6 k/uL (0-1.0); Monocytes % (A) 8 %; Neutrophils # (A) 3.9 k/uL (1.3-7.7); Neutrophils % (A) 58 %; Platelet Count 175 k/uL (150-450); RBC 3.79 m/uL (4.30-5.90); RDW 13.3 % (11.5-15.5); WBC 6.8 k/uL (3.8-10.6)
[2024-01-16 06:37] LABS: African American GFR (CKD) >90 (>60 ml/min/1.73 sqM); Anion Gap -2 mmol/L; Blood Urea Nitrogen 20 mg/dL (9-20); Calcium 8.1 mg/dL (8.4-10.2); Carbon Dioxide 32 mmol/L (22-30); Chloride 107 mmol/L (98-107); Glucose 179 mg/dL (74-99); Non-African American GFR(CKD) 89 (>60 ml/min/1.73 sqM); Potassium 3.7 mmol/L (3.5-5.1); Sodium 137 mmol/L (137-145)
[2024-01-16 06:54] LABS: Glucose,Whole Blood 204 mg/dL (70-110)
[2024-01-16] MEDS: CLOPIDOGREL 75 MG TAB PO SCH (08:12)
--- NOTE | 2024-01-16 10:42 | P.PN ---
Subjective Progress Note Date: 01/16/24 Principal diagnosis: Shortness of breath, hypertension. This is a 73-year-old white male with history of hypertension, type 2 diabetes, peripheral vessel occlusive disease, carotid artery stenosis, underlying COPD, patient underwent elective right carotid endarterectomy, and he had patch angioplasty. Postoperatively the patient was admitted to the ICU, and apparently the patient had a recent history of TIA. In the ICU, the patient was placed on his usual blood pressure medications, but nonetheless his blood pressure remains poorly controlled, and he is requiring Cleviprex drip. Today I saw the patient mostly for poorly controlled blood pressure, and I have adjusted his oral medications by increasing his lisinopril to 20 mg daily hydralazine was made to 25 mg 3 times daily and I increased his Lopressor to 50 mg twice daily. In the meantime we will continue to titrate his Cleviprex. Patient is asymptomatic, denies any headaches denies any shortness of breath, no chest pain, no palpitations, and no nausea no vomiting no abdominal pain. WBC count today is 10.2 hemoglobin 12.4 basic metabolic profile is normal and renal profile is normal Progress note dated January 16, 2024. 73-year-old male admitted on January 12. The patient is postop day #3, status post right-sided carotid endarterectomy. The patient has been having some issues since his surgery, both with elevated blood pressure, and COPD exacerbation. At home, he only uses albuterol. The patient was on Cleviprex, for blood pressure control, but more recently, was restarted on his home blood pressure medications, which are being adjusted by the primary service. In addition, because of increasing shortness of breath, the patient is given updrafts with albuterol sulfate ipratropium bromide, as well as Symbicort 160/4.5, 2 puffs twice a day. Current labs: White count 6.8, hemoglobin 12.2, hematocrit 37.6, and a normal platelet count. Sodium 137, potassium 3.7, chlorides 107, CO2 32, BUN 20, creatinine 0.8. Glucose is 204. Calcium is 8.1. No recent chest x- ray. Objective - Vital Signs Vital signs: Vital Signs Temp 98.0 F 01/16/24 08:00 Pulse 55 L 01/16/24 10:00 Resp 14 01/16/24 10:00 BP 146/64 01/16/24 10:00 Pulse Ox 92 L 01/16/24 10:00 FiO2 Intake & Output 01/15/24 01/16/24 01/16/24 18:59 06:59 18:59 Intake Total 277.700 277.033 80 Output Total 500 550 Balance -222.300 -272.967 80 Weight 117.9 kg Intake: IV 200 240 80 Lactated Ringers 1,000 ml 200 240 80 @ 20 mls/hr IV .Q24H [facility] Rx#:[id number] Intake, IV Titration 77.700 37.033 Amount Clevidipine Butyrate 25 77.700 37.033 mg In Empty Bag 1 bag @ 1 MG/HR 2 mls/hr IV .Q24H [facility] Rx#:[id number] Output: Urine 500 550 Other: Voiding Method Toilet Toilet Toilet Urinal Urinal Urinal # Voids 0 1 1 ABP, PAP, CO, CI - Last Documented Arterial Blood Pressure 123/35 - Exam No acute distress, oriented 3. Currently on 2 L. Room air saturation is 88%. HEENT examination is grossly unremarkable. Mucous membranes are moist. No oral lesions. Neck supple. Full range of motion. No adenopathy thyromegaly or neck vein distention. Cardiovascular examination reveals regular rhythm rate. S1-S2 normal. No S3 or S4. No discernible murmur noted. Lungs reveal scattered expiratory wheezes or rhonchi. Breath sounds equal. Slight prolongation on forced maneuver. No crackles. Abdomen soft bowel sounds are heard. No masses or tenderness. Extremities are intact. No cyanosis clubbing or edema. Skin is without rash or lesion. Neurologic examination is brief but nonfocal. - Labs CBC & Chem 7: 01/16/24 05:32 01/16/24 05:32 Labs: Abnormal Lab Results - Last 24 Hours (Table) 01/15/24 01/15/24 01/15/24 Range/Units 11:38 16:55 22:02 RBC (4.30-5.90) m/uL Hgb (13.0-17.5) gm/dL Hct (39.0-53.0) % Carbon Dioxide (22-30) mmol/L Glucose (74-99) mg/dL POC Glucose (mg/dL) 184 H 252 H 179 H (70-110) mg/dL Calcium (8.4-10.2) mg/dL 01/16/24 01/16/24 01/16/24 Range/Units 05:32 05:32 06:53 RBC 3.79 L (4.30-5.90) m/uL Hgb 12.2 L (13.0-17.5) gm/dL Hct 37.6 L (39.0-53.0) % Carbon Dioxide 32 H (22-30) mmol/L Glucose 179 H (74-99) mg/dL POC Glucose (mg/dL) 204 H (70-110) mg/dL Calcium 8.1 L (8.4-10.2) mg/dL Assessment and Plan Assessment: Postop day #3, S/P right carotid endarterectomy. Hypertensive urgency, requiring Cleviprex, and other blood pressure medications. History of COPD, currently active. Tobacco dependence syndrome. History of hepatitis C. History of TIA. Plan: Plan dated January 16, 2024. The patient's COPD is active. He only uses albuterol at home. Today we ordered DuoNeb, which is albuterol sulfate and ipratropium bromide, to be nebulized 4 times daily and as needed. In addition, we add Symbicort 160/4.5, 2 puffs twice a day. The patient currently does continue to smoke cigarettes. In addition, the primary service, is adjusting the blood pressure medications. The patient is currently off Cleviprex. We will continue to follow. Prognosis is guarded. The patient continues with GI and DVT prophylaxis. Time with Patient: Greater than 30
[2024-01-16] MEDS: ALBUTEROL NEBULIZED 2.5 MG/3 ML INHALATION SCH (11:36)
[2024-01-16] MEDS: SYMBICORT 160-4.5 MCG INHALER INHALATION SCH (11:37)
[2024-01-16 12:01] LABS: Glucose,Whole Blood 82 mg/dL (70-110)
--- NOTE | 2024-01-16 12:03 | P.PN ---
Subjective Progress Note Date: 01/16/24 Principal diagnosis: Carotid stenosis Patient is seen and examined today as a follow-up. He remains in the ICU. He is postop day #3 for right carotid endarterectomy with patch angioplasty. Patient has been hypertensive and was put on Cleviprex postsurgery for blood pressure control. Was discontinued this morning around 1 AM according to nursing. Medical management and ICU have been managing blood pressures. Patient denies any focal deficits. Medicine team has taken over admission. Objective - Vital Signs Vital signs: Vital Signs Temp 97.9 F 01/16/24 04:00 Pulse 61 01/16/24 07:00 Resp 14 01/16/24 07:00 BP 161/76 01/16/24 06:00 Pulse Ox 99 01/16/24 07:00 FiO2 Intake & Output 01/15/24 01/16/24 01/16/24 18:59 06:59 18:59 Intake Total 277.700 277.033 20 Output Total 500 550 Balance -222.300 -272.967 20 Weight 117.9 kg Intake: IV 200 240 20 Lactated Ringers 1,000 ml 200 240 20 @ 20 mls/hr IV .Q24H [facility] Rx#:[id number] Intake, IV Titration 77.700 37.033 Amount Clevidipine Butyrate 25 77.700 37.033 mg In Empty Bag 1 bag @ 1 MG/HR 2 mls/hr IV .Q24H [facility] Rx#:[id number] Output: Urine 500 550 Other: Voiding Method Toilet Toilet Urinal Urinal # Voids 0 1 ABP, PAP, CO, CI - Last Documented Arterial Blood Pressure 161/61 - Exam General appearance: The patient is alert, oriented, appears in no acute distress. HET: Head is normocephalic and atraumatic. Pupils are equal and reactive. Neck: Supple. Right-sided neck incision well-approximated, no hematoma. Heart: Regular. Lungs: Equal expansion, normal respiratory effort. Abdomen: Soft, nondistended. Extremities: Normal skin color and turgor. Neurological: No focal deficits. - Labs CBC & Chem 7: 01/16/24 05:32 01/16/24 05:32 Labs: Abnormal Lab Results - Last 24 Hours (Table) 01/15/24 01/15/24 01/15/24 Range/Units 11:38 16:55 22:02 RBC (4.30-5.90) m/uL Hgb (13.0-17.5) gm/dL Hct (39.0-53.0) % Carbon Dioxide (22-30) mmol/L Glucose (74-99) mg/dL POC Glucose (mg/dL) 184 H 252 H 179 H (70-110) mg/dL Calcium (8.4-10.2) mg/dL 01/16/24 01/16/24 01/16/24 Range/Units 05:32 05:32 06:53 RBC 3.79 L (4.30-5.90) m/uL Hgb 12.2 L (13.0-17.5) gm/dL Hct 37.6 L (39.0-53.0) % Carbon Dioxide 32 H (22-30) mmol/L Glucose 179 H (74-99) mg/dL POC Glucose (mg/dL) 204 H (70-110) mg/dL Calcium 8.1 L (8.4-10.2) mg/dL Assessment and Plan Assessment: 1. Postop day #3 right carotid endarterectomy with patch angioplasty 2. Uncontrolled hypertension Plan: 1. Continue with blood pressure management per primary medical team 2. Start Plavix 75 mg daily 3. Encourage ambulation 4. Patient is cleared for discharge from vascular surgery. Discharge instructions reviewed with patient. The impression and plan of care has been dictated as directed. I performed a history and examination of this patient, discussed the same with the dictator. I agree with the dictator's note ,documented as a scribe. Any additional findings or plans will be noted.
[2024-01-16 16:45] LABS: Glucose,Whole Blood 137 mg/dL (70-110)
[2024-01-16 20:03] LABS: Glucose,Whole Blood 188 mg/dL (70-110)
[2024-01-17 05:51] LABS: Glucose,Whole Blood 157 mg/dL (70-110)
[2024-01-17 07:50] LABS: Basophils % (A) 0 %; Eosinophils # (A) 0.2 k/uL (0-0.7); Eosinophils % (A) 3 %; HCT 39.1 % (39.0-53.0); HGB 12.4 gm/dL (13.0-17.5); Lymphocytes # (A) 1.8 k/uL (1.0-4.8); Lymphocytes % (A) 27 %; MCH 31.9 pg (25.0-35.0); MCHC 31.6 g/dL (31.0-37.0); MCV 100.8 fL (80.0-100.0); Monocytes # (A) 0.5 k/uL (0-1.0); Monocytes % (A) 7 %; Neutrophils % (A) 60 %; Platelet Count 205 k/uL (150-450); RBC 3.88 m/uL (4.30-5.90); WBC 6.7 k/uL (3.8-10.6)
[2024-01-17 08:13] VITALS: RESP 20; TEMP 98
[2024-01-17 08:15] LABS: African American GFR (CKD) >90 (>60 ml/min/1.73 sqM); Anion Gap 2 mmol/L; Blood Urea Nitrogen 25 mg/dL (9-20); Calcium 8.3 mg/dL (8.4-10.2); Carbon Dioxide 29 mmol/L (22-30); Chloride 108 mmol/L (98-107); Glucose 156 mg/dL (74-99); Non-African American GFR(CKD) 85 (>60 ml/min/1.73 sqM); Potassium 3.7 mmol/L (3.5-5.1); Sodium 139 mmol/L (137-145)
--- NOTE | 2024-01-17 11:43 | P.PN ---
Subjective Progress Note Date: 01/16/24 Patient is a 73-year-old male with a past medical history of hypertension, diabetes type 2 insulin-dependent, peripheral vascular disease, carotid stenosis and COPD was admitted to hospital for elective right carotid endarterectomy. Patient is s/p right carotid endarterectomy with patch angioplasty. Post operatively patient was transferred to MICU. Patient does have history of TIA. Patient was found to have hemodynamically significant severe right ICA stenosis. Laboratory showed blood sugars elevated to 224 postoperatively. Other laboratory data is not available at this time. 01/14/2024 Patient is sitting in the chair. Currently on room air. Awake alert and oriented. No complaints of chest pain or shortness of breath. Pain is controlled. Otherwise patient is still on Cleviprex drip which is being tapered down. Blood pressure is elevated with SBP in 170s this morning. Patient is being continued on Norvasc and lisinopril and metoprolol. Patient is also on Lasix. Hydralazine was added. Laboratory data showed WBC 12.2 hemoglobin 13.0 and platelets 198 sodium 137 potassium 4.4 chloride 108 bicarb is 28 BUN 21 and creatinine 0.78 and blood sugar is 251 and A1c level 8.4. 01/15/2024 Patient is currently lying in the bed. Awake alert and oriented x 3. Denies any complaints of headache or dizziness or lightheadedness. Patient's blood pressure is still elevated and is being continued on Cleviprex drip at 4 mg/h. No complaints of chest pain or shortness of breath. No nausea vomiting or abdominal pain or diarrhea. Laboratory data showed WBC 10.2 hemoglobin 12.4 and platelets 174 sodium 134 potassium 3.9 chloride 105 bicarb is 29 BUN 2020 creatinine 0.85 and blood sugar is 226. Calcium 8.3. 01/16/2024 Patient is currently resting in the bed. Awake alert and oriented x 3. No complaints of headache or dizziness. No nausea or vomiting. Denies any difficulty swallowing.. Swelling on the right of the neck is improving slowly. Otherwise patient is off Cleviprex drip. Currently being continued on lisinopril clonidine and metoprolol and hydralazine. Blood pressure is better controlled and patient is being transferred to medical floor today. Laboratory data showed WBC 6.8 hemoglobin 12.2 and platelets 175 sodium 137 potassium 3.7 chloride 107 bicarb is 32 BUN 20 and creatinine 0.8 and blood sugar is 179 and calcium 8.1. Patient is also being continued on insulin regimen. Current medications reviewed. Objective - Vital Signs Vital signs: Vital Signs Temp 97.9 F 01/16/24 20:00 Pulse 60 01/16/24 20:00 Resp 16 01/16/24 20:00 BP 127/61 01/16/24 20:00 Pulse Ox 98 01/16/24 20:00 FiO2 Intake & Output 01/16/24 01/16/24 01/17/24 06:59 18:59 06:59 Intake Total 277.033 498 Output Total 550 Balance -272.967 498 Weight 117.9 kg Intake: IV 240 80 Lactated Ringers 1,000 ml 240 80 @ 20 mls/hr IV .Q24H [facility] Rx#:[id number] Intake, IV Titration 37.033 Amount Clevidipine Butyrate 25 37.033 mg In Empty Bag 1 bag @ 1 MG/HR 2 mls/hr IV .Q24H [facility] Rx#:[id number] Oral 418 Output: Urine 550 Other: Voiding Method Toilet Toilet Toilet Urinal # Voids 1 1 ABP, PAP, CO, CI - Last Documented Arterial Blood Pressure 135/44 - Exam PHYSICAL EXAMINATION: Patient is lying in the bed comfortably, no acute distress, awake alert and oriented.. HEENT: Normocephalic. Neck is supple. Pupils reactive. Nostrils clear. Oral cavity is moist. Neck reveals no JVD, carotid bruits, or thyromegaly. Right carotid surgery site bandaged. CHEST EXAMINATION: Trachea is central. Symmetrical expansion. Lung lopez clear to auscultation and percussion. CARDIAC: Normal S1, S2 with no gallops. No murmurs ABDOMEN: Soft. Bowel sounds normal. No organomegaly. No abdominal bruits. Extremities: reveal no edema. No clubbing or cyanosis Neurologically awake, alert, oriented x3 with well-coordinated movements. No focal deficits noted Skin: No rash or skin lesions. Psychiatric: Coperative. Nonsuicidal Musculoskeletal: No joint swelling or deformity. Normal range of motion. - Labs CBC & Chem 7: 01/17/24 07:28 01/17/24 07:28 Labs: Abnormal Lab Results - Last 24 Hours (Table) 01/16/24 01/16/24 01/16/24 Range/Units 05:32 05:32 06:53 RBC 3.79 L (4.30-5.90) m/uL Hgb 12.2 L (13.0-17.5) gm/dL Hct 37.6 L (39.0-53.0) % Carbon Dioxide 32 H (22-30) mmol/L Glucose 179 H (74-99) mg/dL POC Glucose (mg/dL) 204 H (70-110) mg/dL Calcium 8.1 L (8.4-10.2) mg/dL 01/16/24 01/16/24 Range/Units 16:43 20:01 RBC (4.30-5.90) m/uL Hgb (13.0-17.5) gm/dL Hct (39.0-53.0) % Carbon Dioxide (22-30) mmol/L Glucose (74-99) mg/dL POC Glucose (mg/dL) 137 H 188 H (70-110) mg/dL Calcium (8.4-10.2) mg/dL Assessment and Plan Assessment: Status post right carotid endarterectomy due to hemodynamically significant stenosis. Postoperative day 3 Hyperglycemia with uncontrolled diabetes type 2 insulin-dependent. A1c 8.4 Uncontrolled hypertension History of TIA Peripheral vascular disease Bilateral lower limb venous stasis changes and chronic swelling COPD not in exacerbation History hepatitis C Currently everyday smoker DVT prophylaxis as per primary team Plan: Patient will be continued on telemonitoring. Started back on insulin regimen 70/30 as per home dose and sliding scale. Titrate dose as needed. Patient will be continued on home blood pressure medication including metoprolol lisinopril and Lasix and continue with pain management. Continue to wean off Cleviprex drip. Patient will be continued on hydralazine, Catapres, metoprolol and lisinopril. Titrate dose as needed. Patient is off Cleviprex and is being transferred to medical floor. Bowel regimen and encourage incentive spirometry. Continue GI and DVT prophyla xis. Further recommendations based on the clinical course. Anticipate discharge once blood pressure is better controlled. Discussed with his in detail. Smoking cessation has been counseled extensively. Time with Patient: Greater than 30
[2024-01-17 12:06] VITALS: BP 126/72; PULSE 57
--- NOTE | 2024-01-17 14:21 | PN ---
PROGRESS NOTE SUBJECTIVE: This is a 73-year-old male who is seen today in room 374. The patient is sitting in a chair next to his hospital bed. He is hoping to be discharged. He is postoperative day #4, status post right-sided carotid endarterectomy. Clinically, the patient is doing much better. His blood pressure is under much better control. He is on room air. Saturations are 94%. He is not receiving any IV fluids. The patient is anxious to be discharged. PHYSICAL EXAMINATION: VITAL SIGNS: Current vital signs, temperature 98, heart rate 68, respiratory rate 20, blood pressure 126/72, mean 90, and saturations on room air 94%. GENERAL: He appears in no acute distress. HEENT: Grossly unremarkable. NECK: Supple, full range of motion. No adenopathy or thyromegaly. There is some bruising and swelling, in the right neck area from his recent right carotid endarterectomy. CARDIOVASCULAR: Reveals regular rhythm and rate. S1, S2 normal. There is no S3, S4, or murmur. LUNGS: Clear, breath sounds equal. There are no wheezes, rhonchi, or crackles. ABDOMEN: Soft, bowel sounds are heard. EXTREMITIES: Intact. No cyanosis, clubbing, or edema. SKIN: Without rash. NEUROLOGIC: Examination is brief but nonfocal. LABORATORY DATA: Labs include a white count 6.7, hemoglobin 12.4, hematocrit 39.1, normal platelet count. Sodium 139, potassium 3.7, chloride 108, CO2 29, BUN 25, creatinine 0.89. Glucose is 156. Calcium is 8.3. No recent chest x-ray. ASSESSMENT: 1. Postoperative day #4, status post right carotid endarterectomy. 2. Hypertensive urgency, requiring Cleviprex, with much better control currently. 3. History of COPD, currently mildly active. 4. Tobacco dependence syndrome. 5. History of hepatitis C. 6. History of TIA. PLAN: From the pulmonary standpoint, the patient could be considered for discharge. Apparently, he has been released by vascular surgery. From our standpoint, he is to be discharged. No additional recommendations are made. The patient can follow up with us in the office if he wishes. Additional recommendations and suggestions are forthcoming. Prognosis is guarded. MMODL / IJN: [id number] /
== END 2024-01-17 12:30 | disposition home or self-care (01) | DRG 38 ==
LOC: 2ORMAIN 06:41 → 2SICU 14:09 → 3SCARD 01-16 15:26
PROVIDERS: ADMIT Internal Medicine; ATTEND Surgery
PROC: 03UK0JZ Supplement Right Internal Carotid Artery with Synthetic Substitute, Open Approach (ICD-10-PCS; 2024-01-13)
PROC: 03CK0ZZ Extirpation of Matter from Right Internal Carotid Artery, Open Approach (ICD-10-PCS; principal; 2024-01-13 08:30)
DX: I65.21 Occlusion and stenosis of right carotid artery (principal); J44.1 Chronic obstructive pulmonary disease with (acute) exacerbation; E11.65 Type 2 diabetes mellitus with hyperglycemia; F17.210 Nicotine dependence, cigarettes, uncomplicated; I10 Essential (primary) hypertension; I16.0 Hypertensive urgency; I87.8 Other specified disorders of veins; Z88.8 Allergy status to other drugs, medicaments and biological substances; B18.2 Chronic viral hepatitis C; E11.51 Type 2 diabetes mellitus with diabetic peripheral angiopathy without gangrene; Z79.4 Long term (current) use of insulin; Z79.51 Long term (current) use of inhaled steroids; Z79.84 Long term (current) use of oral hypoglycemic drugs; Z79.899 Other long term (current) drug therapy; Z82.49 Family history of ischemic heart disease and other diseases of the circulatory system; Z86.16 Personal history of COVID-19; Z86.73 Personal history of transient ischemic attack (TIA), and cerebral infarction without residual deficits
CPT/HCPCS: 80048; 83036; 85025; 85027; 88304; 88311; 94640